=== PATIENT | female | born 1945 | race Hispanic/Latino ===

== ENCOUNTER 2017-08-15 17:43 | Observation (INO) | payer MEDICARE ==
[~2017-08-15] VITALS: Ht 157.5 cm; Wt 41.7 kg
[~2017-08-15 17:43] MED LIST: ALBUTEROL2.5 MG/3 M NEB; AMIODARONE HCL200 MG PO; AMLODIPINE BESYL5 MG PO; ANORO ELLIPTA INH; ASPIRIN CHEW81 MG PO; BLOOD THINNER; CLONAZEPAM0.5 MG PO; DOXYCYCLINE HY100 MG PO; FERROUS SULFAT325 MG PO; GLUCOPHAGE500 MG PO; GUAIFENESIN DM118 ML PO; HUMULIN R100 UNIT/2 SQ; IPRATROPIU0.2 MG/1 M NEB; LASIX20 MG PO; LOPRESSOR25 MG PO; LOVENOX40 MG/0.4 SC; MAGNESIUM OXID400 MG PO; METFORMIN HCL500 MG PO; METFORMIN PO; METOPROLOL TART25 MG PO; MUCINEX DM ER1 EACH PO; MULTI-VITAMIN1 EACH PO; Methylprednisolone Sod Succ IV; ONDANSETRON4 MG/2 M1 IV; PAIN MEDICATION; POTASSIUM CHLO20 ME1 PO; PRAVASTATIN SOD40 MG PO; PREDNISONE20 MG PO; PROTONIX40 MG/ML PO; RESTORIL15 MG PO; SERTRALINE HCL50 MG PO
[2017-08-15] MEDS ORDERED: METHYLPREDNISOLONE SOD SUCC 125 MG/2ML VIAL IV STA (18:22)
[2017-08-15] MEDS ORDERED: ALBUTEROL/IPRATROPIUM 3 ML NEB NEB ONE (18:30)
[2017-08-15] MEDS ORDERED: ASPIRIN 81 MG CHEW TAB PO ONE (18:30)
--- NOTE | 2017-08-15 18:48 | Diagnostic Imaging Report ---
Portable chest x-ray INDICATION: Shortness of breath COMPARISON: Chest x-ray 07/15/2017 FINDINGS: Frontal view of the chest obtained at 1815 hours. HEART AND MEDIASTINUM: Cardiac bypass changes are stable. There is stable aortic ectasia LINES: None. LUNGS: Diffuse stable pulmonary hyperinflation. There is no evidence of mass or infiltrate. Mild stable reticulation in the lung bases is suggestive of early fibrosis. No pneumonia or pulmonary edema. PLEURA: The costophrenic angles are sharp. No pneumothorax. BONES AND SOFT TISSUES: Median sternotomy wires are intact. There are no focal osseous lesions. The soft tissues are normal. IMPRESSION: Stable pulmonary hyperinflation and postoperative changes of the mediastinum. No acute cardiopulmonary process. Signed by: Dr. Chema Kelley MD on 08/15/2017 6:44 PM
[2017-08-15 18:51] LABS: BASOPHILS # (AUTO) 0.1 (0.0-0.1); BASOPHILS % 0.7 % (0.0-1.0); EOSINOPHILS # (AUTO) 0.2 (0.0-0.4); EOSINOPHILS % 2.6 % (0.0-6.0); HEMATOCRIT 37.1 % (34.2-44.1); HEMOGLOBIN 11.3 g/dL (12.0-16.0); LYMPHOCYTES # (AUTO) 1.8 (1.0-3.2); LYMPHOCYTES % 21.8 % (18.0-39.1); MEAN CORPUSCULAR HEMOGLOBIN 25.3 pg (28-32); MEAN CORPUSCULAR HGB CONC 30.5 g/dL (31-35); MONOCYTES # (AUTO) 0.8 (0.2-0.8); MONOCYTES % 10.2 % (4.4-11.3); NEUTROPHILS # (AUTO) 5.2 (2.1-6.9); NEUTROPHILS % 64.2 % (38.7-80.0); PLATELET COUNT 371 x10e3/uL (140-360); RED BLOOD COUNT 4.47 x10e6/uL (3.6-5.1); RED CELL DISTRIBUTION WIDTH 13.7 % (11.7-14.4)
[2017-08-15 19:18] LABS: ALANINE AMINOTRANSFERASE 8 IU/L (0-55); ALBUMIN 3.9 g/dL (3.5-5.0); ALKALINE PHOSPHATASE 87 IU/L (40-150); ANION GAP 13.2 mmol/L (8-16); BLOOD UREA NITROGEN 18 mg/dL (7-26); BUN/CREATININE RATIO 28 (6-25); CALCIUM 9.6 mg/dL (8.4-10.2); CARBON DIOXIDE 32 mmol/L (22-29); CHLORIDE 99 mmol/L (98-107); CREATINE KINASE 36 IU/L (29-168); CREATININE, SERUM 0.64 mg/dL (0.57-1.11); EST GLOMERULAR FILTRATION RATE > 60 ML/MIN (60-); GLUCOSE 102 mg/dL (74-118); POTASSIUM 4.2 mmol/L (3.5-5.1); SODIUM 140 mmol/L (136-145)
[2017-08-15 19:29] LABS: TROPONIN I 0.054 ng/mL (0-0.300)
[2017-08-15] MEDS ORDERED: LORAZEPAM 1 MG TAB PO ONE (19:45)
[2017-08-15] MEDS ORDERED: AZITHROMYCIN 500MG/SOD CHL 0.9% 250ML BAG IV SCH (19:45)
[2017-08-15] MEDS ORDERED: CEFTRIAXONE SOD 1 GM VIAL IV SCH ×2 (19:45→20:00)
[2017-08-15] MEDS ORDERED: SODIUM CHLORIDE FLUSH 10 ML SYR INJ PRN (19:45)
[2017-08-15] MEDS ORDERED: DEXTROSE 50% SYRINGE 50 ML IV PRN (19:45)
[2017-08-15] MEDS ORDERED: LORAZEPAM 1 MG TAB PO PRN (19:45)
[2017-08-15 20:00] VITALS: BP 148/64
[2017-08-15] MEDS ORDERED: AZITHROMYCIN 500MG/NS 250 ML 250 ML IV SCH (20:00)
[2017-08-15] MEDS: INSULIN REGULAR, HUMAN 100 UNIT/1 ML 3ML VIAL SQ SCH (21:00)
[2017-08-15] MEDS: ALBUTEROL/IPRATROPIUM 3 ML NEB NEB SCH (23:00)
[2017-08-16] VITALS: BP 126/60
[2017-08-16] MEDS: METHYLPREDNISOLONE SOD SUCC 40 MG/ML VIAL IV SCH ×2 (00:14→06:20)
[2017-08-16] MEDS: ALBUTEROL/IPRATROPIUM 3 ML NEB NEB SCH ×4 (02:15→15:00)
[2017-08-16 03:18] VITALS: BP 126/60
[2017-08-16 04:00] VITALS: BP 127/62
[2017-08-16 07:20] LABS: BASOPHILS % 0.3 % (0.0-1.0); HEMATOCRIT 33.4 % (34.2-44.1); HEMOGLOBIN 10.1 g/dL (12.0-16.0); LYMPHOCYTES # (AUTO) 0.9 (1.0-3.2); LYMPHOCYTES % 13.1 % (18.0-39.1); MEAN CORPUSCULAR HEMOGLOBIN 24.9 pg (28-32); MEAN CORPUSCULAR HGB CONC 30.2 g/dL (31-35); MEAN CORPUSCULAR VOLUME 82.3 fL (81-99); MONOCYTES % 0.6 % (4.4-11.3); NEUTROPHILS # (AUTO) 5.9 (2.1-6.9); NEUTROPHILS % 85.4 % (38.7-80.0); PLATELET COUNT 335 x10e3/uL (140-360); RED BLOOD COUNT 4.06 x10e6/uL (3.6-5.1); RED CELL DISTRIBUTION WIDTH 13.5 % (11.7-14.4)
[2017-08-16] MEDS: INSULIN REGULAR, HUMAN 100 UNIT/1 ML 3ML VIAL SQ SCH (07:30)
[2017-08-16 07:43] LABS: ANION GAP 15.9 mmol/L (8-16); BLOOD UREA NITROGEN 21 mg/dL (7-26); BUN/CREATININE RATIO 27 (6-25); CALCIUM 9.4 mg/dL (8.4-10.2); CARBON DIOXIDE 29 mmol/L (22-29); CHLORIDE 99 mmol/L (98-107); CREATINE KINASE 23 IU/L (29-168); CREATININE, SERUM 0.77 mg/dL (0.57-1.11); EST GLOMERULAR FILTRATION RATE > 60 ML/MIN (60-); GLUCOSE 317 mg/dL (74-118); POTASSIUM 4.9 mmol/L (3.5-5.1); SODIUM 139 mmol/L (136-145)
[2017-08-16 08:14] VITALS: BP 124/61
[2017-08-16 08:37] LABS: TROPONIN I 0.038 ng/mL (0-0.300)
[2017-08-16] MEDS ORDERED: AMIODARONE HCL 200 MG TAB PO SCH (09:00)
[2017-08-16] MEDS ORDERED: AMLODIPINE BESYLATE 5 MG TAB PO SCH (09:00)
[2017-08-16] MEDS ORDERED: ASPIRIN 81 MG CHEW TAB PO SCH (09:00)
[2017-08-16] MEDS ORDERED: SERTRALINE HCL 50 MG TAB PO SCH (09:00)
[2017-08-16] MEDS ORDERED: CLONAZEPAM 1 MG TAB PO SCH ×2 (09:00→21:00)
[2017-08-16] MEDS: METFORMIN HCL 500 MG TAB PO SCH ×2 (11:29→17:30)
[2017-08-16] MEDS: GUAIFENESIN 600MG/DEXTROMETHORPHAN 30MG TABSR PO SCH ×3 (11:29→17:30)
[2017-08-16] MEDS: MAGNESIUM OXIDE 400 MG TAB PO SCH ×2 (11:29→17:30)
[2017-08-16 12:00] VITALS: BP 159/71
[2017-08-16] MEDS: INSULIN LISPRO 100 UNIT/1 ML 3ML VIAL SQ SCH ×2 (12:30→17:30)
[2017-08-16 15:44] LABS: CREATINE KINASE MB 1.5 ng/mL (0.00-5.00); TROPONIN I 0.013 ng/mL (0-0.300)
[2017-08-16 16:13] VITALS: BP 139/55
[2017-08-16] MEDS ORDERED: METHYLPREDNISOLONE SOD SUCC 40 MG/ML VIAL IV SCH (21:00)
[2017-08-16] MEDS ORDERED: SIMVASTATIN 20 MG TAB PO SCH (21:00)
[2017-08-17] MEDS ORDERED: NON-FORMULARY MEDICATION (Pravastatin Sodium 40 MG) PO SCH (09:00)
--- NOTE | 2017-08-17 15:46 | Consultation ---
DATE OF CONSULTATION: August 16, 2017 PSYCHIATRIC CONSULTATION [employer] remote access had some problem yesterday. Therefore, dictation is delayed. REASON FOR CONSULTATION: To evaluate patient's mood. HISTORY OF PRESENTING ILLNESS: The patient is a 71-year-old female admitted to the hospital for COPD exacerbation. Psychiatric consultation is called to evaluate patient's mood. As per the medical record, patient is possibly going to be admitted to [facility]. Upon evaluation today, patient is found to be lying on her bed. She is alert, awake and oriented to situation. She reports feeling depressed and anxious due to various reasons. She is unable to report her specific mood. Patient denies suicidal or homicidal ideation. She admits to feeling hopeless and helpless. She reports poor sleep and poor appetite. She denies any hallucinations. She is not paranoid or psychotic. She is not agitated. PAST PSYCHIATRIC HISTORY: Patient denies any past psychiatric history although she is taking medication for her mood and anxiety. She denies past suicide attempt. She denies alcohol and drug use. FAMILY HISTORY: Patient states a family history of mental illness. Her mother attempted suicide. SOCIAL HISTORY: Patient states she lives with her daughter and granddaughter. MENTAL STATUS EXAM: The patient is an elderly female. She is thin-looking. She is alert, awake and oriented to situation, anxious. Affect is congruent with mood. Psychomotor state is passive. She denies any suicidal or homicidal ideation. She denies any hallucinations. Thought process is concrete. Insight and judgment are fair. Memory appears to be intact. CURRENT MEDICATION 1. Zoloft 75 mg p.o. daily. 2. Insulin. 3. Metformin. 4. Magnesium oxide. 5. Aspirin. 6. Amlodipine. 7. Amiodarone. 8. Ativan 1 mg p.o. q.6 h. p.r.n. 9. Perphenazine. 10. Albuterol. 11. Klonopin 1 mg p.o. q.12 h. . 12. Methylprednisolone. 13. Pravastatin. 14. Dextrose. 15. Sodium chloride. LAB: WBC is 6.88, RBC is 4.06, hemoglobin 10.1, hematocrit 33.4, platelet is 335. Sodium 139, potassium 4.9, chloride 99, CO2 29, BUN 21, creatinine 0.77. ASSESSMENT: Major depressive disorder, recurrent, moderate; generalized anxiety disorder. PLAN: Continue medication for now as patient was discharged before medication could be adjusted. Will most likely continue to see her at [facility] if consulted. Supportive therapy. Dictated by: TIM Shelton Job#: [id number]
== END 2017-08-16 18:37 ==
LOC: ER 17:43 → ERHOLD 19:44 → MED/SURG 21:10
PROVIDERS: ADMIT Internal Medicine; ATTEND Internal Medicine
DX: J44.1 Chronic obstructive pulmonary disease with (acute) exacerbation (principal); E11.9 Type 2 diabetes mellitus without complications; Z79.4 Long term (current) use of insulin; F33.1 Major depressive disorder, recurrent, moderate; F41.1 Generalized anxiety disorder; Z79.82 Long term (current) use of aspirin; E78.5 Hyperlipidemia, unspecified; I10 Essential (primary) hypertension; Z99.81 Dependence on supplemental oxygen; Z87.891 Personal history of nicotine dependence; Z74.01 Bed confinement status; Z95.1 Presence of aortocoronary bypass graft; Z79.84 Long term (current) use of oral hypoglycemic drugs
CPT/HCPCS: 36415 ×2; 71010; 80048; 80053; 82550 ×2; 82553 ×2; 82948 ×2; 84484 ×2; 85025 ×2; 93005; 99285; G0378 ×2; J0456; J0696; J2920; J2930

== ENCOUNTER → 2017-08-29 | Outpatient (CLI) | payer OTHER ==
[2017-08-30 12:52] LABS: HEMOGLOBIN 10.1 g/dL (12.0-16.0); MEAN CORPUSCULAR HEMOGLOBIN 25.2 pg (28-32); MEAN CORPUSCULAR VOLUME 84.8 fL (81-99); PLATELET COUNT 330 x10e3/uL (140-360); RED BLOOD COUNT 4.01 x10e6/uL (3.6-5.1)
[2017-08-30 12:53] LABS: BASOPHILS # (AUTO) 0.1 (0.0-0.1); BASOPHILS % 0.4 % (0.0-1.0); EOSINOPHILS # (AUTO) 0.4 (0.0-0.4); EOSINOPHILS % 2.9 % (0.0-6.0); LYMPHOCYTES # (AUTO) 2.4 (1.0-3.2); LYMPHOCYTES % 19.5 % (18.0-39.1); MEAN CORPUSCULAR HGB CONC 29.7 g/dL (31-35); MONOCYTES # (AUTO) 1.2 (0.2-0.8); MONOCYTES % 9.7 % (4.4-11.3); NEUTROPHILS # (AUTO) 8.1 (2.1-6.9); NEUTROPHILS % 66.5 % (38.7-80.0); SODIUM 138 mmol/L (136-145)
[2017-08-30 12:54] LABS: ALANINE AMINOTRANSFERASE 13 IU/L (0-55); ALBUMIN 3.5 g/dL (3.5-5.0); ALBUMIN/GLOBULIN RATIO 1.3 (0.8-2.0); ALKALINE PHOSPHATASE 58 IU/L (40-150); ANION GAP 16.7 mmol/L (8-16); BLOOD UREA NITROGEN 33 mg/dL (7-26); BUN/CREATININE RATIO 46 (6-25); CALCIUM 9.1 mg/dL (8.4-10.2); CARBON DIOXIDE 27 mmol/L (22-29); CHLORIDE 99 mmol/L (98-107); CREATININE, SERUM 0.71 mg/dL (0.57-1.11); EST GLOMERULAR FILTRATION RATE > 60 ML/MIN (60-); GLUCOSE 185 mg/dL (74-118); POTASSIUM 4.7 mmol/L (3.5-5.1)
== END ==
LOC: NPA 10:00
DX: R69 Illness, unspecified (principal)
CPT/HCPCS: 36415; 80053; 85025

== ENCOUNTER → 2017-08-30 | Outpatient (CLI) | payer OTHER ==
[2017-08-31 21:59] LABS: ANION GAP 15.4 mmol/L (8-16); BLOOD UREA NITROGEN 27 mg/dL (7-26); BUN/CREATININE RATIO 46 (6-25); CALCIUM 9.4 mg/dL (8.4-10.2); CARBON DIOXIDE 29 mmol/L (22-29); CHLORIDE 99 mmol/L (98-107); CREATININE, SERUM 0.59 mg/dL (0.57-1.11); EST GLOMERULAR FILTRATION RATE > 60 ML/MIN (60-); GLUCOSE 101 mg/dL (74-118); HEMATOCRIT 32.8 % (34.2-44.1); HEMOGLOBIN 9.9 g/dL (12.0-16.0); POTASSIUM 4.4 mmol/L (3.5-5.1); SODIUM 139 mmol/L (136-145)
[2017-08-31 22:00] LABS: EOSINOPHILS % 0.3 % (0.0-6.0); LYMPHOCYTES % 1.9 % (18.0-39.1); MEAN CORPUSCULAR HEMOGLOBIN 25.4 pg (28-32); MEAN CORPUSCULAR HGB CONC 30.2 g/dL (31-35); MEAN CORPUSCULAR VOLUME 84.1 fL (81-99); NEUTROPHILS % 10.2 % (38.7-80.0); PLATELET COUNT 310 x10e3/uL (140-360); RED CELL DISTRIBUTION WIDTH 43.3 % (11.7-14.4)
[2017-09-06 17:32] LABS: BASOPHILS # (AUTO) 0.1 (0.0-0.1); BASOPHILS % 0.9 % (0.0-1.0); EOSINOPHILS # (AUTO) 0.5 (0.0-0.4); EOSINOPHILS % 5.4 % (0.0-6.0); HEMATOCRIT 32.8 % (34.2-44.1); HEMOGLOBIN 9.7 g/dL (12.0-16.0); LYMPHOCYTES # (AUTO) 2.2 (1.0-3.2); LYMPHOCYTES % 23.5 % (18.0-39.1); MEAN CORPUSCULAR HEMOGLOBIN 24.7 pg (28-32); MEAN CORPUSCULAR HGB CONC 29.6 g/dL (31-35); MEAN CORPUSCULAR VOLUME 83.7 fL (81-99); MONOCYTES % 10.4 % (4.4-11.3); NEUTROPHILS # (AUTO) 5.7 (2.1-6.9); NEUTROPHILS % 59.6 % (38.7-80.0); PLATELET COUNT 357 x10e3/uL (140-360); RED BLOOD COUNT 3.92 x10e6/uL (3.6-5.1); RED CELL DISTRIBUTION WIDTH 14.4 % (11.7-14.4)
[2017-09-06 18:10] LABS: CLARITY,URINE CLEAR (CLEAR); COLOR,URINE YELLOW (YELLOW); LEUKOCYTE ESTERASE ,URINE NEGATIVE (NEGATIVE); NITRITE,URINE NEGATIVE (NEGATIVE); PROTEIN,URINE DIPSTICK NEGATIVE (NEGATIVE)
[2017-09-06 18:11] LABS: BILIRUBIN,URINE NEGATIVE (NEGATIVE); EPITHELIAL CELLS,URINE RARE /LPF; KETONES,URINE NEGATIVE (NEGATIVE); URINE UROBILINOGEN 0.2 mg/dL (0.2 - 1); WBC,URINE (MAN) 0-5 /HPF (0-5)
== END ==
LOC: NPA 17:00
PROVIDERS: ATTEND Internal Medicine
DX: R69 Illness, unspecified (principal)
CPT/HCPCS: 36415; 80048; 81001; 85025; 87086

== ENCOUNTER → 2017-09-06 | Outpatient (CLI) | payer OTHER | LOC: NPA 09:00 | PROVIDERS: ATTEND Internal Medicine | DX: Z02.89 Encounter for other administrative examinations (principal) ==

== ENCOUNTER → 2017-09-11 | Outpatient (CLI) | payer OTHER ==
[2017-09-11 12:09] LABS: ALANINE AMINOTRANSFERASE 10 IU/L (0-55); ALBUMIN 3.4 g/dL (3.5-5.0); ALKALINE PHOSPHATASE 53 IU/L (40-150); ANION GAP 14.4 mmol/L (8-16); BLOOD UREA NITROGEN 17 mg/dL (7-26); BUN/CREATININE RATIO 26 (6-25); CALCIUM 9.1 mg/dL (8.4-10.2); CARBON DIOXIDE 31 mmol/L (22-29); CHLORIDE 100 mmol/L (98-107); CREATININE, SERUM 0.66 mg/dL (0.57-1.11); EST GLOMERULAR FILTRATION RATE > 60 ML/MIN (60-); GLUCOSE 132 mg/dL (74-118); POTASSIUM 4.4 mmol/L (3.5-5.1); SODIUM 141 mmol/L (136-145)
[2017-09-11 12:24] LABS: BASOPHILS % 0.2 % (0.0-1.0); EOSINOPHILS # (AUTO) 0.3 (0.0-0.4); EOSINOPHILS % 3.3 % (0.0-6.0); HEMATOCRIT 31.9 % (34.2-44.1); LYMPHOCYTES # (AUTO) 1.4 (1.0-3.2); LYMPHOCYTES % 14.6 % (18.0-39.1); MEAN CORPUSCULAR HGB CONC 29.5 g/dL (31-35); MEAN CORPUSCULAR VOLUME 84.8 fL (81-99); MONOCYTES # (AUTO) 0.8 (0.2-0.8); MONOCYTES % 8.1 % (4.4-11.3); NEUTROPHILS # (AUTO) 6.9 (2.1-6.9); NEUTROPHILS % 73.4 % (38.7-80.0); PLATELET COUNT 304 x10e3/uL (140-360); RED BLOOD COUNT 3.76 x10e6/uL (3.6-5.1)
[2017-09-11 12:29] LABS: HEMOGLOBIN 9.4 g/dL (12.0-16.0)
== END ==
LOC: NPA 11:00
PROVIDERS: ATTEND Internal Medicine
DX: Z02.89 Encounter for other administrative examinations (principal)
CPT/HCPCS: 36415; 80053; 85025

== ENCOUNTER 2017-10-17 20:29 | Emergency (ER) | payer MEDICARE ==
[~2017-10-17] VITALS: Ht 157.5 cm; Wt 41.7 kg
[~2017-10-17 20:29] MED LIST changes: -ASCORBIC ACID500 MG PO; -CLONIDINE HCL 0.1 MG TAB PO ONE; -DIPHENHYDRAMINE HCL 25 MG CAP PO ONE; -MORPHINE SULFATE 2 MG/ML SYR IV NR; -MORPHINE SULFATE 5 MG/ML VIAL IV ONE; -Multivitamins/Minerals PO; -NORVASC10 MG PO; -ONDANSETRON HCL INJ 2 MG/ML VIAL IV STA; -PRAVASTATIN SOD20 MG PO; -PREDNISONE10 MG PO; -SODIUM CHLORIDE 0.9% 1000ML 1,000 ML IV STA; -XOPENEX1.25 MG/3 INH
[2017-10-17] MEDS ORDERED: ONDANSETRON HCL 4 MG ORAL DISINTEGRATING TAB PO ONE (21:15)
[2017-10-17 23:40] VITALS: BP 142/74
== END 2017-10-17 23:41 | disposition home or self-care (01) ==
LOC: ER 20:29
DX: R11.0 Nausea (principal)
CPT/HCPCS: 99284

== ENCOUNTER → 2017-10-17 | Emergency (ER) | payer MEDICARE ==
[~2017-10-17] MED LIST changes: +ASCORBIC ACID500 MG PO; +CLONIDINE HCL 0.1 MG TAB PO ONE; +DIPHENHYDRAMINE HCL 25 MG CAP PO ONE; +MORPHINE SULFATE 2 MG/ML SYR IV NR; +MORPHINE SULFATE 5 MG/ML VIAL IV ONE; +Multivitamins/Minerals PO; +NORVASC10 MG PO; +ONDANSETRON HCL INJ 2 MG/ML VIAL IV STA; +PRAVASTATIN SOD20 MG PO; +PREDNISONE10 MG PO; +SODIUM CHLORIDE 0.9% 1000ML 1,000 ML IV STA; +XOPENEX1.25 MG/3 INH
--- OUTSIDE RECORDS SUMMARY | 2017-10-17 12:47 | XMS REPORT ---
Author Author [facility] Address Unknown Phone Unavailable Care Team Providers [employer] Travel Consultant Name Role Phone ALEKS CUELLAR Unavailable Unavailable ROSEMARY NEWELL Unavailable Unavailable Problems This patient has no known problems. Allergies, Adverse Reactions, Alerts This patient has no known allergies or adverse reactions. Medications This patient has no known medications. Results Test Description Test Time Test Comments Text Results Atomic Results Result Comments CHEST SINGLE (PORTABLE) [place] [address] Patient Name: CONSTANCE NICHOLAS MR #: [id number] : 1945 Age/Sex: 71/F Req #: [id number] Adm Physician: Ordered by: ALEKS CUELLAR MD Report #: [id number] Location: ER Room/Bed: Procedure: [id number] DX/CHEST SINGLE (PORTABLE) Exam Date: 08/15/17 Exam Time: 1815 REPORT STATUS: Signed Portable chest x -ray INDICATION: Shortness of breath COMPARISON: Chest x-ray 2016 FINDINGS: Frontal view of the chest obtained at 1815 hours. HEART AND MEDIASTINUM: Cardiac bypass changes are stable. There is stable aortic ectasia LINES: None. LUNGS: Diffuse stable pulmonary hyperinflation. There is no evidence of mass or infiltrate. Mild stable reticulation in the lung bases is suggestive of early fibrosis. No pneumonia or pulmonary edema. PLEURA: The costophrenic angles are sharp. No pneumothorax. BONES AND SOFT TISSUES: Median sternotomy wires are intact. There are no focal osseous lesions. The soft tissues are normal. IMPRESSION: Stable pulmonary hyperinflation and postoperative changes of the mediastinum. No acute cardiopulmonary process. Signed by: Dr. Francisco J Kelley MD on 08/15/2017 6:44 PM Dictated By: FRANCISCO J KELLEY MD 43 Transcribed By: CHRISTA on 08/15/171843 COPY TO: ALEKS CUELLAR MD ABDOMEN-1VIEW (KUB) [place] [address] Patient Name: CONSTANCE NICHOLAS MR #: [id number] : 1945 Age/Sex: 71/F Req #: [id number] Adm Physician: ROSEMARY NEWELL MD Ordered by: Mira Almeida MATERIAL DISPOSITION INSPECTOR Report #: [id number] Location: MED/SURG Room/Bed: [facility] Procedure: [id number] DX/ABDOMEN-1VIEW (KUB) Exam Date : 08/03/17 Exam Time: 1145 REPORT STATUS: Signed PROCEDURE: X-RAY ABDOMEN - KUB COMPARISON: None. INDICATIONS: ABDOMINAL PAIN FINDINGS: Motion degraded study. Lower pelvis is out of the field of view. BOWEL GAS PATTERN: No abnormally distended loops of large or small bowel. Normal amount of stool in the colon. CALCIFICATIONS: Vascular calcifications. LUNG BASES: Unremarkable. OTHER: Median sternotomy wires. Osseous structures intact. Soft tissues are unremarkable CONCLUSION: Non-obstructive bowel gas pattern. Dictated by: Giancarlo Schroeder M.D. on 2016 at 12:08 Electronically approved by: Giancarlo Schroeder M.D. on 2016 at 12:08 Dictated By: GIANCRALO SCHROEDER MD 07 Transcribed By: DANIELA on 08/03/171207 COPY TO: MIRA ALMEIDA NP CHEST SINGLE (PORTABLE) [place] [address] Patient Name: CONSTANCE NICHOLAS MR #: [id number] : 1945 Age/Sex: 71/F Req #: [id number] Adm Physician: Ordered by: ALEKS CUELLAR MD Report #: [id number] Location: ER Room/Bed: Procedure: [id number] DX/CHEST SINGLE (PORTABLE) Exam Date: Exam Time: REPORT STATUS: Signed PROCEDURE: A single AP view of the chest. COMPARISON: Portable chest 07/15/2017. INDICATIONS: SHORTNESS OF BREATH FINDINGS: Lines/tubes: None. Lungs: The lungs are well inflated and clear. There is no evidence of pneumonia or pulmonary edema. Pleura: There is no pleural effusion or pneumothorax. Heart and mediastinum: The heart and the mediastinum are unremarkable. Atherosclerotic calcifications. Bones: No acute bony abnormality. Median sternotomy wires. Degenerative changes of the thoracic spine. IMPRESSION: No acute radiographic abnormality. Dictated by: Anand Burrows M.D. on 07/30/2017 at 9:45 Electronically approved by: Anand Burrows M.D. on 07/30/2017 at 9:45 Dictated By : ANAND BURROWS MD Transcribed By: DANIELA on 07/30/17944 COPY TO: ALEKS CUELLAR MD CHEST SINGLE (PORTABLE) [place] [address] Patient Name: CONSTANCE NICHOLAS MR #: [id number] : 1945 Age/Sex: 71/F Req #: [id number] Adm Physician: Ordered by: ALEKS CUELLAR MD Report #: [id number] Location: ER Room/Bed: Procedure: [id number] DX/CHEST SINGLE (PORTABLE) Exam Date: 07/15/17 Exam Time: 1610 REPORT STATUS: Signed EXAMINATION: Chest, CHEST SINGLE (PORTABLE) INDICATION: Chest pain COMPARISON : Chest 2 views 12/26/2016 FINDINGS: LINES: None. Heart : Normal cardiac silhouette. Vascular: The pulmonary vasculature is within normal limits. Atherosclerotic calcifications of the aortic arch. Mediastinum: No mediastinal, hilar, or axillary mass or lymphadenopathy. Lungs: No parenchymal mass. No focal consolidation. Pleura: No pleural effusion. No pneumothorax. Bones: No acute osseous abnormality. Degenerative changes of the thoracic spine. Median sternotomy wires. Soft tissues: Normal. Impression: No acute radiographic abnormality. Signed by: Dr. Anand Burrows M.D. on 07/15/2017 4:27 PM Dictated By: ANAND BURROWS MD 26 Transcribed By: CHRISTA on 07/15/171626 COPY TO: ALEKS CUELLAR MD
[2017-10-17 13:59] LABS: BASOPHILS % 0.6 % (0.0-1.0); EOSINOPHILS # (AUTO) 0.2 (0.0-0.4); EOSINOPHILS % 2.4 % (0.0-6.0); HEMATOCRIT 35.8 % (34.2-44.1); HEMOGLOBIN 10.8 g/dL (12.0-16.0); LYMPHOCYTES # (AUTO) 1.1 (1.0-3.2); LYMPHOCYTES % 15.4 % (18.0-39.1); MEAN CORPUSCULAR HEMOGLOBIN 25.2 pg (28-32); MEAN CORPUSCULAR HGB CONC 30.2 g/dL (31-35); MEAN CORPUSCULAR VOLUME 83.4 fL (81-99); MONOCYTES # (AUTO) 0.6 (0.2-0.8); MONOCYTES % 8.7 % (4.4-11.3); NEUTROPHILS # (AUTO) 5.1 (2.1-6.9); NEUTROPHILS % 72.5 % (38.7-80.0); PLATELET COUNT 356 x10e3/uL (140-360); RED BLOOD COUNT 4.29 x10e6/uL (3.6-5.1); RED CELL DISTRIBUTION WIDTH 14.1 % (11.7-14.4)
[2017-10-17 14:24] LABS: ALANINE AMINOTRANSFERASE 9 IU/L (0-55); ALBUMIN/GLOBULIN RATIO 0.9 (0.8-2.0); ALKALINE PHOSPHATASE 65 IU/L (40-150); ANION GAP 13.7 mmol/L (8-16); BLOOD UREA NITROGEN 16 mg/dL (7-26); BUN/CREATININE RATIO 25 (6-25); CALCIUM 9.2 mg/dL (8.4-10.2); CARBON DIOXIDE 35 mmol/L (22-29); CHLORIDE 96 mmol/L (98-107); CREATINE KINASE 47 IU/L (29-168); CREATININE, SERUM 0.65 mg/dL (0.57-1.11); EST GLOMERULAR FILTRATION RATE > 60 ML/MIN (60-); GLUCOSE 134 mg/dL (74-118); LIPASE 13 U/L (8-78); POTASSIUM 4.7 mmol/L (3.5-5.1); SODIUM 140 mmol/L (136-145)
--- NOTE | 2017-10-17 14:25 | Diagnostic Imaging Report ---
PROCEDURE:X-RAY ABDOMEN - KUB COMPARISON:08/03/2017. INDICATIONS:ABDOMEN PAIN, SHORT OF BREATH FINDINGS: The left flank is incompletely imaged. The bowel gas pattern shows no dilated, air-filled loops of bowel. Gas and fecal material are noted throughout the large bowel. No mass effect organomegaly. Atherosclerotic vascular calcifications. Right hemipelvic phlebolith. No additional abnormal calcification. Regional skeletal structures are intact. Mild degenerative facet arthropathy at L5-S1. CONCLUSION: Nonobstructive bowel gas pattern. Dictated by: Santo Beasley M.D. on 10/17/2017 at 14:25 Electronically approved by: Santo Beasley M.D. on 10/17/2017 at 14:25
--- NOTE | 2017-10-17 14:30 | Diagnostic Imaging Report ---
PROCEDURE: A single AP view of the chest. COMPARISON: Chest radiograph 08/15/2017 INDICATIONS: ABDOMEN PAIN, SHORT OF BREATH FINDINGS: Lines/tubes: None. Lungs: The lungs are well inflated. Stable mild chronic interstitial changes. There is no evidence of pneumonia or pulmonary edema. Pleura: There is no pleural effusion or pneumothorax. Heart and mediastinum: Postsurgical changes from prior CABG. Aortic calcifications. The heart and the mediastinum are unremarkable. Bones: No acute bony abnormality. Median sternotomy wires. IMPRESSION: No acute cardiopulmonary disease. Dictated by: Giancarlo Casillas M.D. on 10/17/2017 at 14:30 Electronically approved by: Giancarlo Casillas M.D. on 10/17/2017 at 14:30
[2017-10-17 16:59] LABS: BILIRUBIN,URINE NEGATIVE (NEGATIVE); COLOR,URINE YELLOW (YELLOW); KETONES,URINE NEGATIVE (NEGATIVE); LEUKOCYTE ESTERASE ,URINE NEGATIVE (NEGATIVE); NITRITE,URINE NEGATIVE (NEGATIVE); PROTEIN,URINE DIPSTICK NEGATIVE (NEGATIVE); URINE UROBILINOGEN 0.2 mg/dL (0.2 - 1)
[2017-10-17 17:00] LABS: CLARITY,URINE CLEAR (CLEAR)
[2017-10-17 17:12] LABS: BACTERIA,URINE RARE /HPF; EPITHELIAL CELLS,URINE FEW /LPF; RBC,URINE 0-5 /HPF (0-5); WBC,URINE (MAN) 0-5 /HPF (0-5)
[2017-10-17 17:13] LABS: AMORPHOUS SEDIMENT,URINE MANY (FEW); MUCUS,URINE MODERATE (RARE)
[2017-10-17 18:15] VITALS: BP 115/57
== END | disposition home or self-care (01) ==
LOC: ER 12:44
DX: R10.9 Unspecified abdominal pain (principal)
CPT/HCPCS: 36415; 71045; 74018; 80053; 81001; 82550; 82553; 82948; 83690; 84484; 85025; 87086; 93005; 99284; J2270; J2405; J7030

== ENCOUNTER 2017-11-19 06:37 | Emergency (ER) | payer MEDICARE ==
[~2017-11-19] VITALS: Ht 157.5 cm; Wt 41.7 kg
--- OUTSIDE RECORDS SUMMARY | 2017-11-19 06:39 | XMS REPORT | Continuity of Care Document ---
Author Author [facility] Organization 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 No 08/16/17 2:53am If yes, is advance directive on file with [facility]? No 08/16/17 2:53am If not on file with [facility] will patient provide a copy? Yes 08/16/17 2:53am Do you have a Directive to Physician? No 10/17/17 9:03pm Do you have a Medical Power of Box Person? No 10/17/17 9:03pm Do you have an out of hospital Do Not Resuscitate Order? No 10/17/17 9:03pm Do you have any special needs we should be aware of? No 10/17/17 9:03pm Do you have a support person here with you today? Yes 10/17/17 9:03pm Did patient receive Notice of Privacy Practices? Yes 10/17/17 9:03pm Did patient receive patient rights and responsibilities? Yes 10/17/17 9:03pm Problems Medical Problem Onset Date Status CHF (congestive heart failure) Unknown COPD (chronic obstructive pulmonary disease) Unknown COPD exacerbation Unknown CVA (cerebral vascular accident) Unknown Chronic respiratory acidosis Unknown Dysphagia Unknown Medications Current Home Medications Medication Dose Units Route Directions Days Qty Instructions Start Date Amiodarone Hcl 200 Mg Tablet 200 Mg Oral Daily Amlodipine Besylate 5 Mg Tablet 5 Mg Oral Daily 30 Tab Anoro Ellipta 1 Inh Inhalation Daily 1 08/03/17 Aspirin (Aspirin Chew) 81 Mg Chew 81 Mg Oral Daily 30 Tab Clonazepam 0.5 Mg Tablet 1 Mg Oral Twice A Day Guaifenesin/Dextromethorphan (Mucinex Dm Er 600-30 Mg Tablet) 1 Each Tab.er.12h 1 Each Oral Every 6 Hours 30 Days 07/20/17 Magnesium Oxide 400 Mg Tablet 400 Mg Oral Twice A Day Metformin Hcl 500 Mg Tablet 500 Mg Oral Twice A Day 60 Tab Pravastatin Sodium 40 Mg Tablet 40 Mg Oral Daily Prednisone 20 Mg Tab 50 Mg Oral Daily Sertraline Hcl 50 Mg Tablet 75 Mg Oral Daily 30 Tab Past Home Medications Medication Directions Ordered Status Albuterol Sulfate 2.5 Mg/3 Ml Vial.neb, 3 Ml Nebullizer Rt Q6h 09/18/16 Discontinued Blood Thinner , Discontinued Doxycycline Hyclate 100 Mg Capsule, 100 Mg Oral Daily 07/20/17 Discontinued Enoxaparin Sodium (Lovenox) 40 Mg/0.4 Ml Inj, 40 Mg Subcutaneously Daily At 1700 09/18/16 Discontinued Ferrous Sulfate 325 Mg Tablet, 325 Mg Oral Twice A Day 12/27/16 Discontinued Guaifenesin/Dextromethorphan (Guaifenesin Dm Syrup) 118 Ml Syrup, 10 Ml Oral Every 8 Hours as needed for Cough 09/18/16 Discontinued Insulin Regular, Human (Humulin R) 100 Unit/1 Ml Vial, 0 Unit Sub-Q Before Meals And At Bedtime 09/18/16 Discontinued Ipratropium [place] 0.2 Mg/1 Ml Solution, 2.5 Ml Nebullizer Rt Q6h 09/18/16 Discontinued Metformin 500 Mg, 1000 Mg Oral Twice A Day Discontinued Metformin Hcl (Glucophage) 500 Mg Tablet, 1000 Mg Oral Twice Daily With Meals 09/18/16 Discontinued Methylprednisolone Sod Succ 40 Mg/Ml Inj, 20 Mg Intraven Every 12 Hours 09/18 Discontinued Metoprolol Tartrate (Lopressor) 25 Mg Tab, 12.5 Mg Oral Daily 09/18/16 Discontinued Metoprolol Tartrate 25 Mg Tablet, 12.5 Mg Oral Daily Discontinued Multivitamin (Multi-Vitamin Daily) 1 Each Tablet, 1 Tab Oral Daily 12/27/16 Discontinued Ondansetron Hcl/Pf (Ondansetron Hcl 4 Mg/2 Ml Vial) 4 Mg/2 Ml Vial, 2 Mg Intraven Every 6 Hours as needed for Nausea And Vomiting 09/18/16 Discontinued Pain Medication , Discontinued Pantoprazole Sod (Protonix) 40 Mg/Ml Susp, 40 Mg Oral Before Breakfast Discontinued Temazepam (Restoril) 15 Mg Capsule, 30 Mg Oral Bedtime 09/18/16 Discontinued Social History Social History Problem Response Recorded Date/Time Onset Date Status Hx Psychiatric Problems Yes 08/16/2017 2:53am Not Applicable Not Applicable Hx Eating Disorder No 08/16/2017 2:53am Not Applicable Not Applicable Hx Substance Use Disorder No 08/16/2017 2:53am Not Applicable Not Applicable Hx Depression Y - PT STATES SHE IS DEPRESSED 08/16/2017 2:53am Not Applicable Not Applicable Hx Alcohol Use No 08/16/2017 2:53am Not Applicable Not Applicable Hx Substance Use Treatment No 08/16/2017 2:53am Not Applicable Not Applicable Hx Physical Abuse No 08/16/2017 2:53am Not Applicable Not Applicable Smoking Status Start Date Stop Date Never Smoker Hospital Discharge Instructions No hospital discharge instruction information available. Plan of Care Discharge Date 10/17/17 11:41pm Disposition HOME, SELF-CARE Condition at Discharge Stable Instructions/Education Provided Abdominal Pain - Adult Forms Provided Work/School Excuse Prescriptions See Medication Section Referrals SHARON NUNEZ DO Address: [address] [place] [id number] Additional Instructions/Education FOLLOW UP WITH YOUR PRIMARY CARE DOCTOR ON SUNDAY ADMINISTER MEDICATIONS ORDERED BY DOCTOR RETURN IF SYMPTOMS WORSEN Functional Status No functional status information available. Allergies, Adverse Reactions, Alerts No known allergies. Immunizations No immunization information available. Vital Signs Acute Vital Signs Vital Response Date/Time Temperature (Fahrenheit) 98.4 degrees F (97.6 - 99.5) 10/17/2017 11:40pm Pulse Pulse Rate (adult) 83 bpm (60 - 90) 10/17/2017 11:40pm Respiratory Rate 20 bpm (12 - 24) 10/17/2017 11:40pm Blood Pressure 142/74 mm Hg 10/17/2017 11:40pm Height 5 ft 2 in 10/17/2017 9:10pm Weight 92 lb 10/17/2017 9:10pm Body Mass Index 16.8 kg/m^2 10/17/2017 9:10pm Results Laboratory Results Test Name Result Units Flags Reference Collection Date/Time Result Date/ Time Comments Triglycerides Level 103 MG/DL 0-149 12/26/2016 5:05am 12/26/2016 5: 52am Cholesterol Level 220 MD/DL H 0-199 12/26/2016 5:05am 12/26/2016 5:52am Less than 200 mg/dL Low Risk 201 - 239 mg/dL Borderline Risk 240 mg/dl and greater High Risk LDL Cholesterol 134 MG/DL H 60-130 12/26/2016 5:05am 12/26/2016 5:52am HDL Cholesterol 65 MG/DL H 40-60 12/26/2016 5:05am 12/26/2016 5:52am Cholesterol/HDL Ratio 3.4 3.0-3.6 12/26/2016 5:05am 12/26/2016 5: 52am Free Thyroxine Index 1.4755 1.4-3.8 12/26/2016 5:05am 12/26/2016 6: 03am Thyroxine (T4) 4.83 ug/dL 4.5-10.9 12/26/2016 5:05am 12/26/2016 6:03am Our current method for Total T4 is not recommended for use as the only marker for evaluating patients for thyroid disorders. Triiodothyronine (T3) Uptake 30.55 % 22.50-37.00 12/26/2016 5:05am 6:03am Arterial Blood pH 7.40 7.31-7.41 12/26/2016 2:05am 12/26/2016 2:52am Arterial Blood Partial Pressure CO2 78 mmHg *H 41-51 12/26/2016 2:05am 2:52am Results hand delivered to MD BARRETT at 0212 on 12/26/16 by Sincere Wong. RB OK. Arterial Blood Partial Pressure O2 126 mmHg H 80-105 12/26/2016 2:05am 12/26/2016 2:52am Arterial Blood HCO3 48 mmol/L H 23-28 12/26/2016 2:05am 12/26/2016 2: 52am Arterial Blood Base Excess 23.0 mmol/L H -2 - 3 12/26/2016 2:05am 2016 2:52am Arterial Blood Oxygen Saturation 99.0 % H 95-98 12/26/2016 2:05am 2016 2:52am Reason for ABG: ER STAT SpO2 99% on 3L NC. Iron Level 14 ug/dL L 50-170 07/18/2017 7:08am 07/18/2017 7:45am Total Iron Binding Capacity 393 ug/dL 261-478 07/18/2017 7:08am 2016 7:45am Percent Iron Saturation 4 % L 15-50 07/18/2017 7:08am 07/18/2017 7:45am Transferrin 281 mg/dL 180-382 07/18/2017 7:08am 07/18/2017 7:45am Ferritin 12.75 ng/mL 4.63-204.00 07/18/2017 7:08am 07/18/2017 8:05am Vitamin B12 Level 193 pg/mL L 213-816 07/18/2017 7:08am 07/18/2017 8: 16am Folate 4.3 ng/mL L 7.0-15.4 07/18/2017 7:08am 07/18/2017 8:16am Stool Occult Blood NEGATIVE NEGATIVE 07/19/2017 12:30am 07/19/2017 12 :43am Prothrombin Time 11.2 seconds L 11.9-14.5 07/30/2017 9:11am 07/30/2017 9 :40am Prothromb Time International Ratio 0.78 07/30/2017 9:11am 2016 9:40am Oral Anticoagulant Therapy INR Values: 1. Low Intensity Therapy 1.5 - 2.0 2. Moderate Intensity Therapy 2.0 - 3.0 3. High Intensity Therapy(1) 2.5 - 3.5 4. High Intensity Therapy(2) 3.0 - 4.0 5. Panic Value INR > 5.0 Activated Partial Thromboplast Time 24.7 seconds 23.8-35.5 07/30/2017 9: 11am 07/30/2017 9:40am Hemoglobin A1c Percent 5.8 % 4.0-7.0 08/02/2017 7:10am 08/02/2017 7: 40am Magnesium Level 1.6 MG/DL 1.3-2.1 07/31/2017 6:55am 07/31/2017 8:01am B-Type Natriuretic Peptide 83.1 pg/mL 0-100 08/02/2017 7:10am 2016 7:58am Free Thyroxine 1.22 ng/dL 0.8-1.8 07/31/2017 6:55am 07/31/2017 8:23am Thyroid Stimulating Hormone (TSH) 1.283 uIU/mL 0.350-4.940 07/31/2017 6: 55am 07/31/2017 8:23am White Blood Count 7.09 x10e3/uL 4.8-10.8 10/17/2017 1:45pm 10/17/2017 2 :00pm Red Blood Count 4.29 x10e6/uL 3.6-5.1 10/17/2017 1:45pm 10/17/2017 2: 00pm Hemoglobin 10.8 g/dL L 12.0-16.0 10/17/2017 1:45pm 10/17/2017 2:00pm Hematocrit 35.8 % 34.2-44.1 10/17/2017 1:45pm 10/17/2017 2:00pm Mean Corpuscular Volume 83.4 fL 81-99 10/17/2017 1:45pm 10/17/2017 2: 00pm Mean Corpuscular Hemoglobin 25.2 pg L 28-32 10/17/2017 1:45pm 2017 2:00pm Mean Corpuscular Hemoglobin Concent 30.2 g/dL L 31-35 10/17/2017 1:45pm 10/17/2017 2:00pm Red Cell Distribution Width 14.1 % 11.7-14.4 10/17/2017 1:45pm 2017 2:00pm Platelet Count 356 x10e3/uL 140-360 10/17/2017 1:45pm 10/17/2017 2: 00pm Neutrophils (%) (Auto) 72.5 % 38.7-80.0 10/17/2017 1:45pm 10/17/2017 2: 00pm Lymphocytes (%) (Auto) 15.4 % L 18.0-39.1 10/17/2017 1:45pm 10/17/2017 2 :00pm Monocytes (%) (Auto) 8.7 % 4.4-11.3 10/17/2017 1:45pm 10/17/2017 2: 00pm Eosinophils (%) (Auto) 2.4 % 0.0-6.0 10/17/2017 1:45pm 10/17/2017 2: 00pm Basophils (%) (Auto) 0.6 % 0.0-1.0 10/17/2017 1:45pm 10/17/2017 2:00pm IM GRANULOCYTES % 0.4 % 0.0-1.0 10/17/2017 1:45pm 10/17/2017 2:00pm Neutrophils # (Auto) 5.1 2.1-6.9 10/17/2017 1:45pm 10/17/2017 2:00pm Lymphocytes # (Auto) 1.1 1.0-3.2 10/17/2017 1:45pm 10/17/2017 2:00pm Monocytes # (Auto) 0.6 0.2-0.8 10/17/2017 1:45pm 10/17/2017 2:00pm Eosinophils # (Auto) 0.2 0.0-0.4 10/17/2017 1:45pm 10/17/2017 2:00pm Basophils # (Auto) 0.0 0.0-0.1 10/17/2017 1:45pm 10/17/2017 2:00pm Absolute Immature Granulocyte (auto 0.03 x10e3/uL 0-0.1 10/17/2017 1: 45pm 10/17/2017 2:00pm Urine Color YELLOW YELLOW 10/17/2017 4:40pm 10/17/2017 5:00pm Urine Clarity CLEAR CLEAR 10/17/2017 4:40pm 10/17/2017 5:00pm Urine Specific [place] 1.015 1.010-1.025 10/17/2017 4:40pm 2017 5:00pm Urine pH 8 H 5 - 7 10/17/2017 4:40pm 10/17/2017 5:00pm Urine Leukocyte Esterase NEGATIVE NEGATIVE 10/17/2017 4:40pm 2017 5:00pm Urine Nitrite NEGATIVE NEGATIVE 10/17/2017 4:40pm 10/17/2017 5:00pm Urine Protein NEGATIVE NEGATIVE 10/17/2017 4:40pm 10/17/2017 5:00pm Urine Glucose (UA) NEGATIVE NEGATIVE 10/17/2017 4:40pm 10/17/2017 5: 00pm Urine Ketones NEGATIVE NEGATIVE 10/17/2017 4:40pm 10/17/2017 5:00pm Urine Urobilinogen 0.2 mg/dL 0.2 - 1 10/17/2017 4:40pm 10/17/2017 5: 00pm Urine Bilirubin NEGATIVE NEGATIVE 10/17/2017 4:40pm 10/17/2017 5: 00pm Urine Blood NEGATIVE NEGATIVE 10/17/2017 4:40pm 10/17/2017 5:00pm Urine WBC 0-5 /HPF 0-5 10/17/2017 4:40pm 10/17/2017 5:13pm Urine RBC 0-5 /HPF 0-5 10/17/2017 4:40pm 10/17/2017 5:13pm Urine Bacteria RARE /HPF NONE 10/17/2017 4:40pm 10/17/2017 5:13pm Urine Epithelial Cells FEW /LPF NONE 10/17/2017 4:40pm 10/17/2017 5: 13pm Urine Amorphous Sediment MANY H FEW 10/17/2017 4:40pm 10/17/2017 5: 13pm Urine Mucus MODERATE H RARE 10/17/2017 4:40pm 10/17/2017 5:13pm Sodium Level 140 mmol/L 136-145 10/17/2017 1:45pm 10/17/2017 2:25pm Potassium Level 4.7 mmol/L 3.5-5.1 10/17/2017 1:45pm 10/17/2017 2:25pm Chloride Level 96 mmol/L L 98-107 10/17/2017 1:45pm 10/17/2017 2:25pm Carbon Dioxide Level 35 mmol/L H 22-10/17/2017 1:45pm 10/17/2017 2: 25pm Anion Gap 13.7 mmol/L 8-16 10/17/2017 1:45pm 10/17/2017 2:25pm Blood Urea Nitrogen 16 mg/dL 7-26 10/17/2017 1:45pm 10/17/2017 2:25pm Creatinine 0.65 mg/dL 0.57-1.11 10/17/2017 1:45pm 10/17/2017 2:25pm BUN/Creatinine Ratio 25 6-25 10/17/2017 1:45pm 10/17/2017 2:25pm Estimat Glomerular Filtration Rate > 60 ML/MIN 60- 10/17/2017 1:45pm 2:25pm Ranges were taken from the National Kidney Disease Education Program and the National [employer] literature. Reference ranges: 60 or greater: Normal 16-59 (for 3 consecutive months): Chronic kidney disease 15 or less: Kidney failure Glucose Level 134 mg/dL H 74-118 10/17/2017 1:45pm 10/17/2017 2:25pm Calcium Level 9.2 mg/dL 8.4-10.2 10/17/2017 1:45pm 10/17/2017 2:25pm Bedside Glucose 120 mg/dL 70-120 10/17/2017 4:05pm 10/17/2017 4:16pm Meter ID: [id number] Total Bilirubin 0.6 mg/dL 0.2-1.2 10/17/2017 1:45pm 10/17/2017 2:25pm Aspartate Amino Transf (AST/SGOT) 28 IU/L 5-34 10/17/2017 1:45pm 2017 2:25pm Alanine Aminotransferase (ALT/SGPT) 9 IU/L 0-55 10/17/2017 1:45pm 10/17 2:25pm Total Protein 8.3 g/dL H 6.5-8.1 10/17/2017 1:45pm 10/17/2017 2:25pm Albumin 4.0 g/dL 3.5-5.0 10/17/2017 1:45pm 10/17/2017 2:25pm Globulin 4.3 g/dL H 2.3-3.5 10/17/2017 1:45pm 10/17/2017 2:25pm Albumin/Globulin Ratio 0.9 0.8-2.0 10/17/2017 1:45pm 10/17/2017 2: 25pm Alkaline Phosphatase 65 IU/L 40-150 10/17/2017 1:45pm 10/17/2017 2: 25pm Creatine Kinase 47 IU/L 29-168 10/17/2017 1:45pm 10/17/2017 2:25pm Creatine Kinase MB 1.50 ng/mL 0.00-5.00 10/17/2017 1:45pm 10/17/2017 2: 34pm Troponin I 0.037 ng/mL 0-0.300 10/17/2017 1:45pm 10/17/2017 2:34pm Lipase 13 U/L 8-78 10/17/2017 1:45pm 10/17/2017 2:25pm Microbiology Results Procedure Source Organism/Result Collection Date/Time Result Date/Time Result Status Blood Culture Blood NO GROWTH AFTER 5 DAYS, FINAL REPORT 07/15/2017 4:05pm 07/20/2017 4:31pm Final Procedures Procedure Status Date Provider(s) Computed tomography of brain without radiopaque contrast Active 12/26/16 ANIA BARRETT MD X-ray of chest, two views Active 12/26/16 ANIA BARRETT MD Encounters Encounter Location Arrival/Admit Date Discharge/Depart Date Attending Provider Departed Emergency Room [facility] 10/17/17 8:29pm 11:41pm ANIA BARRETT MD Registered Emergency Room [facility] 10/17/17 12:44pm ALEKS CUELLAR MD Registered Clinic [facility] 09/11/17 11:00am ROSEMARY NEWELL MD Registered Clinic [facility] 09/06/17 9:00am ROSEMARY NEWELL MD Registered Clinic [facility] 08/30/17 5:00pm ROSEMARY NEWELL MD Registered Clinic [facility] 08/29/17 10:00am NONSTAFF Discharged Inpatient (obs) [facility] 08/15/17 7:44pm 6:37pm ROSEMARY NEWELL MD Discharged Inpatient [facility] 07/30/17 10:46am 6:16pm ROSEMARY NEWELL MD Discharged Inpatient [facility] 07/16/17 4:26pm 07/20/17 7:33pm ROSEMARY NEWELL MD Discharged Inpatient [facility] 12/26/16 2:53am 12/27/16 6:20pm ROSEMARY NEWELL MD
--- NOTE | 2017-11-19 08:30 | Diagnostic Imaging Report ---
PROCEDURE:CT PELVIS WITHOUT CONTRAST COMPARISON:None. INDICATIONS:FALL, R/O FRACTURE TECHNIQUE:Multiple axial images of the pelvis were obtained from the pelvic inlet to the proximal femurs. No intravenous or oral contrast was administered. Coronal and sagittal reconstructed images were submitted. FINDINGS: Pelvis: The urinary bladder is normal. Normal uterus and ovaries. Bowel: Moderate amount of retained feces limits intraluminal evaluation of the colon. Scattered diverticuli are present, without adjacent soft tissue inflammatory changes. Postoperative changes of appendectomy. The visualized portions of the small bowel are unremarkable. Vessels: Atherosclerotic calcifications. Limited evaluation. Bones: No acute displaced fracture or dislocation. No expansile or lytic or sclerotic lesion. Degenerative changes of the lumbar spine. CONCLUSION: No acute abnormality of the pelvis. Dictated by: Sincere Alberts M.D. on 11/19/2017 at 8:30 Electronically approved by: Sincere Alberts M.D. on 11/19/2017 at 8:30
--- NOTE | 2017-11-19 08:43 | Diagnostic Imaging Report ---
PROCEDURE: A single AP view of the chest. COMPARISON: Portable chest 10/17/2017. INDICATIONS: FALL, DEMENTIA FINDINGS: Lines/tubes: None. Lungs: The lungs are well inflated and clear. There is no evidence of pneumonia or pulmonary edema. Pleura: There is no pleural effusion or pneumothorax. Skin fold projects over the right lung base. Heart and mediastinum: The heart and the mediastinum are unremarkable. Bones: No acute bony abnormality. Median sternotomy wires degenerative changes of the thoracic spine. IMPRESSION: No acute radiographic abnormality. Dictated by: Sincere Alberts M.D. on 11/19/2017 at 8:43 Electronically approved by: Sincere Alberts M.D. on 11/19/2017 at 8:43
--- NOTE | 2017-11-19 08:56 | Diagnostic Imaging Report ---
Exams: Head, maxillofacial and cervical spine CTs without IV contrast History: Trauma, fall Comparison studies: Head CT 12/26/2016. Technique: Axial images were obtained to the vertex and maxillofacial region. Coronal and sagittal images reconstructed from the axial data. Intravenous contrast: None Findings: Scalp: No abnormalities. Bones: No fractures, blastic or lytic lesions. Brain sulci: Appropriate for age. Ventricles: Normal in size and configuration. No hydrocephalus. Parenchyma: No mass, acute hemorrhage or acute cortical vascular insults. Chronic right [employer]OP[employer] territory vascular insult with encephalomalacia and gliosis throughout the occipital lobe, inferior precuneus gyrus, occipitotemporal/lingual gyri, right hippocampus and splenium of the corpus callosum. Infarct was age-indeterminate (possibly acute to subacute) in 12/26/2016. There are chronic lacunar infarcts in the right thalamus, posterior right putamen and genu of the corpus callosum to the left of midline. Scattered ill-defined hypodensities in the supratentorial white matter are nonspecific but most compatible with chronic small vessel ischemic changes. Sellar/suprasellar region: No abnormalities Craniocervical junction: Patent foramen magnum. No Chiari one malformation. Atherosclerotic calcifications in the carotid siphons and left intradural vertebral artery. Maxillofacial CT: Soft tissues: Supranasal and perineural soft tissue hematomas. Bones: Nondisplaced nasal bone fractures of the nasal tip with probable minimally displaced fracture of the superior nasal septum. No additional fractures. Orbits: Globes: Intact Extra or intraconal abnormalities: None. Paranasal sinuses: Left sphenoid sinus is nearly completely opacified with mucosal thickening and secretions, increased from previous exam. The posterior left ethmoid air cells are also similarly opacified. Small nonobstructing retention cyst with mild mucosal thickening in the right sphenoid sinus and minimal mucosal thickening along the right maxillary sinus alveolar recess. Remaining sinuses are clear. Incidental findings: New nonspecific bilateral middle ear opacification with increase in degree of mastoid opacification (mastoids now completely opacified. Cervical spine CT: Fractures: None. Soft tissue injuries: No gross acute abnormalities. Atlantoaxial articulation: Intact. The patient's head is rotated to the right at the time the exam. Alignment: Straightened curvature may be positional. Minimal anterolisthesis of C2 on C3 and retrolisthesis of C5 on C6 are most likely degenerative in etiology. Otherwise, no acute subluxations. Cervicomedullary junction: No abnormalities. The foramen magnum is patent. Soft tissues: No abnormalities. Vertebrae: No fractures, infection or neoplasm. Degenerative changes: Mildly degenerated disks from C2 through C7. Disc osteophyte complexes from C3 C7 indent the thecal sac but results in only mild canal stenosis. Moderate multilevel facet arthrosis. Mild bilateral foraminal stenosis at C3-C4 moderate foraminal stenosis bilaterally at C4-C5 and at C5-C6 due to uncovertebral and facet arthrosis. Incidental findings: Scattered calcified atherosclerosis (subclavian arteries, left common carotid artery, left cervical bulb, carotid siphons and left intradural vertebral artery). Mild centrilobular emphysema at the included lung apices. IMPRESSION: Head CT: 1. No acute abnormalities. 2. Chronic right [employer]ELOP[employer]ER vascular territory insult. 3. Unchanged mild to moderate chronic microvascular ischemic changes with chronic lacunar infarcts as described. 4. Nonspecific bilateral middle ear mastoid opacification, increased from previous exam. Maxillofacial CT: 1. Prenasal and periorbital soft tissue hematomas with nondisplaced right nasal bone fracture and likely minimally displaced fracture of the superior nasal septum. 2. No additional acute post-traumatic abnormalities. 3. Paranasal sinus inflammatory changes. Cervical spine CT: 1. No cervical spine fracture or acute subluxation. 2. Multilevel degenerative changes as described. 3. Cannot adequately evaluate ligament, spinal cord and or vascular abnormalities on the basis of this exam. Signed by: Dr. Santo Downey M.D. on 11/19/2017 8:52 AM
[2017-11-19] MEDS ORDERED: HALOPERIDOL LACTATE 5 MG/ML VIAL IM ONE ×2 (10:45)
[2017-11-19] MEDS ORDERED: SODIUM CHLORIDE 0.9% 1000ML 1,000 ML IV STA (11:12)
[2017-11-19 11:30] LABS: BASOPHILS # (AUTO) 0.1 (0.0-0.1); BASOPHILS % 0.6 % (0.0-1.0); EOSINOPHILS # (AUTO) 0.1 (0.0-0.4); EOSINOPHILS % 1.5 % (0.0-6.0); HEMOGLOBIN 10.2 g/dL (12.0-16.0); LYMPHOCYTES % 22.6 % (18.0-39.1); MEAN CORPUSCULAR HEMOGLOBIN 24.6 pg (28-32); MEAN CORPUSCULAR HGB CONC 29.1 g/dL (31-35); MEAN CORPUSCULAR VOLUME 84.3 fL (81-99); MONOCYTES % 11.7 % (4.4-11.3); NEUTROPHILS # (AUTO) 5.5 (2.1-6.9); NEUTROPHILS % 63.1 % (38.7-80.0); PLATELET COUNT 314 x10e3/uL (140-360); RED BLOOD COUNT 4.15 x10e6/uL (3.6-5.1); RED CELL DISTRIBUTION WIDTH 14.6 % (11.7-14.4)
[2017-11-19 11:47] LABS: ALANINE AMINOTRANSFERASE 13 IU/L (0-55); ALBUMIN 3.5 g/dL (3.5-5.0); ALBUMIN/GLOBULIN RATIO 0.9 (0.8-2.0); ALKALINE PHOSPHATASE 62 IU/L (40-150); ANION GAP 15.4 mmol/L (8-16); BLOOD UREA NITROGEN 19 mg/dL (7-26); BUN/CREATININE RATIO 28 (6-25); CALCIUM 9.7 mg/dL (8.4-10.2); CARBON DIOXIDE 39 mmol/L (22-29); CHLORIDE 90 mmol/L (98-107); CREATINE KINASE 189 IU/L (29-168); CREATININE, SERUM 0.68 mg/dL (0.57-1.11); EST GLOMERULAR FILTRATION RATE > 60 ML/MIN (60-); GLUCOSE 107 mg/dL (74-118); POTASSIUM 4.4 mmol/L (3.5-5.1); SODIUM 140 mmol/L (136-145)
[2017-11-19 11:58] LABS: BILIRUBIN,URINE NEGATIVE (NEGATIVE); CLARITY,URINE HAZY (CLEAR); COLOR,URINE YELLOW (YELLOW); KETONES,URINE NEGATIVE (NEGATIVE); LEUKOCYTE ESTERASE ,URINE 1+ (NEGATIVE); NITRITE,URINE NEGATIVE (NEGATIVE); URINE UROBILINOGEN 0.2 mg/dL (0.2 - 1)
[2017-11-19 11:59] LABS: PROTEIN,URINE DIPSTICK TRACE (NEGATIVE)
[2017-11-19 12:06] LABS: THYROID STIMULATING HORMONE 12.296 uIU/mL (0.350-4.940)
[2017-11-19 12:16] LABS: BACTERIA,URINE MANY /HPF; EPITHELIAL CELLS,URINE RARE /LPF
[2017-11-19 12:17] LABS: MUCUS,URINE FEW (RARE)
[2017-11-19] MEDS ORDERED: ONDANSETRON HCL INJ 2 MG/ML VIAL IV STA (12:46)
[2017-11-19] MEDS ORDERED: MORPHINE SULFATE 2 MG/ML SYR IV STA ×3 (12:46→14:39)
[2017-11-19] MEDS ORDERED: NITROGLYCERIN 2% OINT 1 GM PKT TOP ONE (13:00)
[2017-11-19] MEDS ORDERED: NITROGLYCERIN/D5W 200 MCG/ML 250 ML ONE (13:02)
[2017-11-19] MEDS ORDERED: SODIUM CHLORIDE 0.9% 1000ML 1,000 ML ONE (13:02)
[2017-11-19] MEDS ORDERED: CEFTRIAXONE SOD 1 GM VIAL IV ONE (14:00)
== END 2017-11-19 15:38 | disposition home or self-care (01) ==
LOC: ER 06:37
DX: R10.30 Lower abdominal pain, unspecified (principal); I10 Essential (primary) hypertension; E11.9 Type 2 diabetes mellitus without complications; J44.9 Chronic obstructive pulmonary disease, unspecified; F41.9 Anxiety disorder, unspecified; Z95.1 Presence of aortocoronary bypass graft; Z87.19 Personal history of other diseases of the digestive system
CPT/HCPCS: 36415; 51700; 70450; 70486; 71045; 72125; 72192; 80053; 81001; 82140; 82550; 82553; 84443; 84484; 85025; 93005; 99285; J0696; J1630; J2270; J2405; J7030

== ENCOUNTER 2017-11-25 07:01 | Inpatient (IN) | payer MEDICARE ==
[~2017-11-25] VITALS: Ht 157.5 cm; Wt 45.5 kg
--- OUTSIDE RECORDS SUMMARY | 2017-11-25 07:04 | XMS REPORT | Continuity of Care Document ---
Author Author [facility] Organization [facility] Address [address] [place] [address] Phone Unavailable Care Team Providers Care Documentation Analyst Name Role Phone SHARON NUNEZ DO PCP Insurance Providers Guarantor Nadine Montes Address [id number] [place] [address] Email NONE Payer Medicare A & B Policy Number [id number] Subscriber's Name Montes,Nadine Soria Relationship 18 Self / Same As Patient Effective Date 08 Advance Directives Directive Response Recorded Date/Time Does the patient have an advance directive? No 08/16/17 2:53am If yes, is advance directive on file with [facility]? No 08/16/17 2:53am If not on file with [facility] will patient provide a copy? No 11/19/17 6:35am Do you have a Directive to Physician? No 11/19/17 6:35am Do you have a Medical Power of Erp Implementation Consultant? No 11/19/17 6:35am Do you have an out of hospital Do Not Resuscitate Order? No 11/19/17 6:35am Do you have any special needs we should be aware of? No 11/19/17 6:35am Do you have a support person here with you today? No 11/19/17 6:35am Did patient receive Notice of Privacy Practices? Yes 11/19/17 6:35am Did patient receive patient rights and responsibilities? Yes 11/19/17 6:35am Problems Medical Problem Onset Date Status CHF [...] Meals And At Bedtime 09/18/16 Discontinued Ipratropium [place] 0.2 Mg/1 Ml Solution, 2.5 Ml Nebullizer [...] No 08/16/2017 2:53am Not Applicable Not Applicable Hospital Discharge Instructions No hospital discharge instruction information available. Plan of Care Discharge Date 11/19/17 3:38pm Disposition [facility] Condition at Discharge Stable Forms Provided Work/School Excuse Prescriptions See Medication Section Functional Status No functional status information available. [...] 10/17/2017 11:40pm Height 5 ft 2 in 11/19/2017 6:43am Weight 92 lb 11/19/2017 6:43am Body Mass Index 16.8 kg/m^2 11/19/2017 6:43am Results Laboratory Results Test Name Result Units Flags Reference Collection Date/Time Result Date/ Time Comments Iron Level 14 ug/dL L 50-170 07/18/2017 [...] 1.22 ng/dL 0.8-1.8 07/31/2017 6:55am 07/31/2017 8:23am Urine Amorphous Sediment MANY H FEW 10/17/2017 4:40pm 10/17/2017 5: 13pm Bedside Glucose 120 mg/dL 70-120 10/17/2017 4:05pm 10/17/2017 4:16pm Meter ID: [id number] Lipase 13 U/L 8-78 10/17/2017 1:45pm 10/17/2017 2:25pm White Blood Count 8.69 x10e3/uL 4.8-10.8 11/19/2017 11:23am 11/19/2017 11:30am Red Blood Count 4.15 x10e6/uL 3.6-5.1 11/19/2017 11:2311/19/2017 11: 30am Hemoglobin 10.2 g/dL L 12.0-16.0 11/19/2017 11:11/19/2017 11:30am Hematocrit 35.0 % 34.2-44.1 11/19/2017 11:11/19/2017 11:30am Mean Corpuscular Volume 84.3 fL 81-99 11/19/2017 11:11/19/2017 11: 30am Mean Corpuscular Hemoglobin 24.6 pg L 28-32 11/19/2017 11:232017 11:30am Mean Corpuscular Hemoglobin Concent 29.1 g/dL L 31-35 11/19/2017 11:2311/19/2017 11:30am Red Cell Distribution Width 14.6 % H 11.7-14.4 11/19/2017 11:232017 11:30am Platelet Count 314 x10e3/uL 140-360 11/19/2017 11:2311/19/2017 11: 30am Neutrophils (%) (Auto) 63.1 % 38.7-80.0 11/19/2017 11:11/19/2017 11:30am Lymphocytes (%) (Auto) 22.6 % 18.0-39.1 11/19/2017 11:11/19/2017 11:30am Monocytes (%) (Auto) 11.7 % H 4.4-11.3 11/19/2017 11:am 11/19/2017 11 :30am Eosinophils (%) (Auto) 1.5 % 0.0-6.0 11/19/2017 11:11/19/2017 11: 30am Basophils (%) (Auto) 0.6 % 0.0-1.0 11/19/2017 11:11/19/2017 11: 30am IM GRANULOCYTES % 0.5 % 0.0-1.0 11/19/2017 11:11/19/2017 11:30am Neutrophils # (Auto) 5.5 2.1-6.9 11/19/2017 11:11/19/2017 11: 30am Lymphocytes # (Auto) 2.0 1.0-3.2 11/19/2017 11:23am 11/19/2017 11: 30am Monocytes # (Auto) 1.0 H 0.2-0.8 11/19/2017 11:11/19/2017 11: 30am Eosinophils # (Auto) 0.1 0.0-0.4 11/19/2017 11:11/19/2017 11: 30am Basophils # (Auto) 0.1 0.0-0.1 11/19/2017 11:11/19/2017 11:30am Absolute Immature Granulocyte (auto 0.04 x10e3/uL 0-0.1 11/19/2017 11: 11/19/2017 11:30am Urine Color YELLOW YELLOW 11/19/2017 11:4211/19/2017 12:00pm Urine Clarity HAZY CLEAR 11/19/2017 11:4211/19/2017 12:00pm Urine Specific [place] 1.005 L 1.010-1.025 11/19/2017 11:42am 2017 12:00pm Urine pH 7 5 - 7 11/19/2017 11:4211/19/2017 12:00pm Urine Leukocyte Esterase 1+ H NEGATIVE 11/19/2017 11:42am 11/19/2017 12:00pm Urine Nitrite NEGATIVE NEGATIVE 11/19/2017 11:42am 11/19/2017 12: 00pm Urine Protein TRACE H NEGATIVE 11/19/2017 11:42am 11/19/2017 12:00pm Urine Glucose (UA) NEGATIVE NEGATIVE 11/19/2017 11:42am 11/19/2017 12 :00pm Urine Ketones NEGATIVE NEGATIVE 11/19/2017 11:42am 11/19/2017 12: 00pm Urine Urobilinogen 0.2 mg/dL 0.2 - 1 11/19/2017 11:42am 11/19/2017 12: 00pm Urine Bilirubin NEGATIVE NEGATIVE 11/19/2017 11:42am 11/19/2017 12: 00pm Urine Blood NEGATIVE NEGATIVE 11/19/2017 11:42am 11/19/2017 12:00pm Urine WBC 6-10 /HPF H 0-5 11/19/2017 11:42am 11/19/2017 12:17pm Urine RBC NONE /HPF 0-5 11/19/2017 11:42am 11/19/2017 12:17pm Urine Bacteria MANY /HPF H NONE 11/19/2017 11:42am 11/19/2017 12:17pm Urine Epithelial Cells RARE /LPF NONE 11/19/2017 11:42am 11/19/2017 12: 17pm Urine Mucus FEW H RARE 11/19/2017 11:42am 11/19/2017 12:17pm Sodium Level 140 mmol/L 136-145 11/19/2017 11:23am 11/19/2017 11:48am Potassium Level 4.4 mmol/L 3.5-5.1 11/19/2017 11:23am 11/19/2017 11: 48am Chloride Level 90 mmol/L L 98-107 11/19/2017 11:23am 11/19/2017 11:48am Carbon Dioxide Level 39 mmol/L H 22-11/19/2017 11:23am 11/19/2017 11: 48am Anion Gap 15.4 mmol/L 8-16 11/19/2017 11:23am 11/19/2017 11:48am Blood Urea Nitrogen 19 mg/dL 7-11/19/2017 11:23am 11/19/2017 11: 48am Creatinine 0.68 mg/dL 0.57-1.11 11/19/2017 11:11/19/2017 11:48am BUN/Creatinine Ratio 28 H 6-25 11/19/2017 11:11/19/2017 11:48am Estimat Glomerular Filtration Rate > 60 ML/MIN 60- 11/19/2017 11:11/19/2017 11:48am Ranges were taken from the National Kidney Disease Education Program and the National Kidney Foundation literature. Reference ranges: 60 or greater: Normal 16-59 (for 3 consecutive months): Chronic kidney disease 15 or less: Kidney failure Glucose Level 107 mg/dL 74-118 11/19/2017 11:11/19/2017 11:48am Calcium Level 9.7 mg/dL 8.4-10.2 11/19/2017 11:11/19/2017 11:48am Total Bilirubin 0.3 mg/dL 0.2-1.2 11/19/2017 11:11/19/2017 11: 48am Aspartate Amino Transf (AST/SGOT) 32 IU/L 5-34 11/19/2017 11:11/19 11:48am Alanine Aminotransferase (ALT/SGPT) 13 IU/L 0-55 11/19/2017 11: 11:48am Ammonia 37 UG/DL 31-123 11/19/2017 12:35pm 11/19/2017 12:45pm Total Protein 7.5 g/dL 6.5-8.1 11/19/2017 11:11/19/2017 11:48am Albumin 3.5 g/dL 3.5-5.0 11/19/2017 11:11/19/2017 11:48am Globulin 4.0 g/dL H 2.3-3.5 11/19/2017 11:11/19/2017 11:48am Albumin/Globulin Ratio 0.9 0.8-2.0 11/19/2017 11:11/19/2017 11: 48am Alkaline Phosphatase 62 IU/L 40-150 11/19/2017 11:11/19/2017 11: 48am Creatine Kinase 189 IU/L H 29-168 11/19/2017 11:11/19/2017 11:48am Creatine Kinase MB 9.30 ng/mL H 0-5.0 11/19/2017 11:23am 11/19/2017 12: 15pm Troponin I 4.726 ng/mL H 0-0.300 11/19/2017 11:23am 11/19/2017 12:15pm Elevated result called to TERESA KUMARI RN at 1212 on 11/19/17 by Herve Fowler. Thyroid Stimulating Hormone (TSH) 12.296 uIU/mL H 0.350-4.940 11/19/2017 11:23am 11/19/2017 12:15pm Microbiology Results Procedure Source Organism/Result Collection Date/Time Result Date/Time Result Status Blood Culture Blood NO GROWTH AFTER 5 DAYS, FINAL REPORT 07/15/2017 4:05pm 07/20/2017 4:31pm Final Procedures Procedure Status Date Provider(s) Computed tomography of brain without radiopaque contrast Active 11/19/17 ADDISON KIM MD Computed tomography of cervical spine without contrast Active 11/19/17 ADDISON KIM MD Computed tomography of pelvis without contrast Active 11/19/[address] maxillofacial area wo contrast Active 11/19/17 ADDISON KIM MD Encounters Encounter Location Arrival/Admit Date Discharge/Depart Date Attending Provider Departed Emergency Room [facility] 11/19/17 6:37am 3:38pm BRENNAN BARRON MD Registered Referred [facility] 11/12/17 4:03pm ROSEMARY NEWELL MD Departed Emergency Room [facility] 10/17/17 8:29pm 11:41pm ANIA BARRETT MD Registered Emergency Room [facility] 10/17/17 12:44pm ALEKS CUELLAR MD Registered Referred [facility] 09/11/17 4:07pm ROSEMARY NEWELL MD Registered Referred [facility] 09/06/17 4:05pm ROSEMARY NEWELL MD Registered Referred [facility] 08/29/17 3:54pm NONSTAFF Discharged Inpatient (obs) [facility] 08/15/17 7:44pm 6:37pm ROSEMARY NEWELL MD Discharged Inpatient [facility] 07/30/17 10:46am 6:16pm ROSEMARY NEWELL MD Discharged Inpatient [facility] 07/16/17 4:26pm 07/20/17 7:33pm ROSEMARY NEWELL MD
[2017-11-25] MEDS ORDERED: METOPROLOL TARTRATE 50 MG TAB PO STA (07:25)
[2017-11-25] MEDS ORDERED: MORPHINE SULFATE 2 MG/ML SYR IV STA (07:25)
[2017-11-25] MEDS ORDERED: ENOXAPARIN SODIUM INJ 100 MG/ML SYR SC STA (07:25)
[2017-11-25] MEDS ORDERED: ONDANSETRON HCL INJ 2 MG/ML VIAL IV STA (07:25)
[2017-11-25] MEDS ORDERED: SODIUM CHLORIDE 0.9% 1000ML 1,000 ML IV STA (07:25)
[2017-11-25] MEDS ORDERED: PANTOPRAZOLE 40 MG 10ML VIAL IV STA (07:25)
[2017-11-25] MEDS ORDERED: DEXTROSE 50% SYRINGE 50 ML IV PRN ×2 (07:30→08:45)
[2017-11-25] MEDS ORDERED: ONDANSETRON HCL INJ 2 MG/ML VIAL IV PRN (07:30)
[2017-11-25] MEDS: METOPROLOL TARTRATE 25 MG TAB PO SCH ×2 (07:30→21:28)
[2017-11-25] MEDS ORDERED: MORPHINE SULFATE 2 MG/ML SYR IV PRN (08:00)
[2017-11-25] MEDS: PREDNISONE 10 MG TAB PO SCH (08:04)
--- NOTE | 2017-11-25 08:22 | Diagnostic Imaging Report ---
EXAM: XR CHEST 1 VIEW DATE: 11/25/2017 7:25 AM INDICATION: Chest pain COMPARISON: 11/19/2017 FINDINGS: Lines and Tubes: None Heart and Mediastinum: Heart upper limits of normal. Aortic vascular calcifications, tortuosity descending thoracic aorta, and sternotomy wires, stable. Lungs and Pleura: No pneumothorax or focal consolidation. Minimal opacities lung bases suggest atelectasis, stable. Bones and Soft Tissues: No acute findings. IMPRESSION: 1. No acute cardiopulmonary findings. Signed by: Dr. Mg Salter MD on 11/25/2017 8:18 AM
[2017-11-25] MEDS: AZITHROMYCIN 500MG/NS 250 ML 250 ML IV SCH (08:30)
[2017-11-25 08:31] LABS: PROTHROMBIN TIME 12.4 seconds (11.9-14.5)
[2017-11-25 08:32] LABS: PARTIAL THROMBOPLASTIN TIME 27.3 seconds (23.8-35.5)
[2017-11-25 08:33] LABS: BASOPHILS % 0.3 % (0.0-1.0); EOSINOPHILS # (AUTO) 0.3 (0.0-0.4); EOSINOPHILS % 5.9 % (0.0-6.0); HEMATOCRIT 30.9 % (34.2-44.1); HEMOGLOBIN 8.7 g/dL (12.0-16.0); LYMPHOCYTES # (AUTO) 1.2 (1.0-3.2); LYMPHOCYTES % 20.9 % (18.0-39.1); MEAN CORPUSCULAR HEMOGLOBIN 24.2 pg (28-32); MEAN CORPUSCULAR HGB CONC 28.2 g/dL (31-35); MEAN CORPUSCULAR VOLUME 86.1 fL (81-99); MONOCYTES # (AUTO) 0.8 (0.2-0.8); NEUTROPHILS # (AUTO) 3.4 (2.1-6.9); NEUTROPHILS % 58.7 % (38.7-80.0); PLATELET COUNT 388 x10e3/uL (140-360); RED BLOOD COUNT 3.59 x10e6/uL (3.6-5.1); RED CELL DISTRIBUTION WIDTH 14.6 % (11.7-14.4)
[2017-11-25 08:40] LABS: BILIRUBIN,URINE NEGATIVE (NEGATIVE); CLARITY,URINE HAZY (CLEAR); COLOR,URINE YELLOW (YELLOW); KETONES,URINE NEGATIVE (NEGATIVE); LEUKOCYTE ESTERASE ,URINE NEGATIVE (NEGATIVE); NITRITE,URINE NEGATIVE (NEGATIVE); PROTEIN,URINE DIPSTICK NEGATIVE (NEGATIVE); URINE UROBILINOGEN 0.2 mg/dL (0.2 - 1)
[2017-11-25 08:42] LABS: ALANINE AMINOTRANSFERASE 8 IU/L (0-55); ALBUMIN 3.1 g/dL (3.5-5.0); ALBUMIN/GLOBULIN RATIO 0.9 (0.8-2.0); ALKALINE PHOSPHATASE 56 IU/L (40-150); BLOOD UREA NITROGEN 15 mg/dL (7-26); BUN/CREATININE RATIO 28 (6-25); CARBON DIOXIDE 39 mmol/L (22-29); CHLORIDE 96 mmol/L (98-107); CREATINE KINASE 35 IU/L (29-168); CREATININE, SERUM 0.54 mg/dL (0.57-1.11); EST GLOMERULAR FILTRATION RATE > 60 ML/MIN (60-); GLUCOSE 125 mg/dL (74-118); LIPASE 13 U/L (8-78); MAGNESIUM 1.2 MG/DL (1.3-2.1); SODIUM 141 mmol/L (136-145)
[2017-11-25] MEDS: ASPIRIN 81 MG ENTERIC COATED PO SCH (08:44)
[2017-11-25 08:59] LABS: AMORPHOUS SEDIMENT,URINE MANY (FEW); EPITHELIAL CELLS,URINE FEW /LPF; RBC,URINE 0-5 /HPF (0-5); WBC,URINE (MAN) 0-5 /HPF (0-5)
[2017-11-25] MEDS: METFORMIN HCL 500 MG TAB PO SCH ×2 (09:00→17:22)
[2017-11-25] MEDS: MAGNESIUM OXIDE 400 MG TAB PO SCH ×2 (09:00→17:22)
[2017-11-25] MEDS ORDERED: AMLODIPINE BESYLATE 5 MG TAB PO SCH (09:00)
[2017-11-25] MEDS: ENOXAPARIN SOD INJ 40 MG/0.4 ML SYR SC SCH ×2 (09:00→21:28)
[2017-11-25] MEDS: AMIODARONE HCL 200 MG TAB PO SCH (09:00)
[2017-11-25] MEDS: CLONAZEPAM 1 MG TAB PO SCH ×2 (09:00→17:22)
[2017-11-25] MEDS: PANTOPRAZOLE 40 MG 10ML VIAL IV SCH (09:00)
[2017-11-25 09:02] LABS: THYROID STIMULATING HORMONE 3.043 uIU/mL (0.350-4.940)
[2017-11-25] MEDS: INSULIN REGULAR, HUMAN 100 UNIT/1 ML 3ML VIAL SQ SCH ×3 (09:11→21:28)
--- NOTE | 2017-11-25 09:29 | Diagnostic Imaging Report ---
Examination: CT head without contrast Clinical Indication: Fall. Confusion. Altered mental status. Technique: Transaxial noncontrast images from the skull base through the vertex were obtained. Sagittal and coronal reformatted images were done. Comparison: Head CT performed November 19, 2017. Findings: There is significant motion artifact on the scan. Scalp: No abnormalities. Bones: Intact. No fractures. No blastic or lytic lesions. Brain sulci: Appropriate for patient's age. Ventricles: Normal in size and configuration. No hydrocephalus. Extra-axial space: No large hemorrhage.. Parenchyma: No large masses, large hemorrhage, or large acute cortical based vascular insults. Again demonstrated is a cortical-based area of encephalomalacia involving the right posterior cerebral artery territory (occipital lobe, precuneus gyrus of the right parietal lobe, right hippocampus and splenium of the corpus callosum) with associated dystrophic calcification. Again demonstrated are chronic lacunar infarcts in the right putamen, right thalamocapsular region and anterior limb of the left internal capsule. Again demonstrated are mild confluent areas of hypoattenuation in the periventricular and subcortical white matter, nonspecific. Suprasellar region: No abnormalities. Craniocervical junction: The foramen magnum is patent. No Chiari one malformation. Incidental findings: Opacification of the bilateral mastoid air cells and middle ear cavities, unchanged. Impression: 1. Despite limitation, no new large intraparenchymal or extra-axial hemorrhage or large acute territorial infarct. No change from prior head CT performed November 19, 2017. 2. Unchanged chronic right posterior cerebral artery territory and chronic lacunar infarcts, as above. 3. Unchanged mild chronic microvascular ischemic change. 4. Unchanged bilateral presumed otomastoiditis. Signed by: Dr. Jen Clement M.D. on 11/25/2017 9:25 AM
--- NOTE | 2017-11-25 09:35 | Diagnostic Imaging Report ---
Examination: CT CERVICAL SPINE WITHOUT CONTRAST HISTORY:Fall. Evaluate for fracture. COMPARISON:CT cervical spine performed November 19, 2017. TECHNIQUE: Multidetector helical axial images were obtained without contrast from the foramen magnum to T1. Coronal and sagittal reformatted images were done. Bone and soft tissue windows were evaluated. FINDINGS: Alignment:Normal lordosis. Mild degenerative anterolisthesis of C2 on C3 and retrolisthesis of C5 on C6. Vertebrae: Evaluation of the C7 vertebral body is limited due to partial visualization. Normal height and density. No acute fracture, infection or neoplasm. Disc space heights: Normal height. Caliber of spinal canal: Developmentally normal. Posterior fossa and craniocervical junction: Foramen magnum patent. No Chiari 1 malformation. Soft tissues: No abnormality. Degenerative changes: Unchanged degenerative disc osteophyte complexes from C3-C4 through C6-C7 without canal stenosis. Unchanged mild bilateral neural foraminal narrowing at C3-C4 due to bilateral facet arthropathy. Unchanged mild right and moderate left neural foraminal narrowing at C4-C5 due to bilateral uncovertebral and facet arthropathy. Unchanged moderate bilateral neural foraminal narrowing at C5-C6 due to bilateral uncovertebral and facet arthropathy. IMPRESSION: 1. No acute fracture of the C1-C6 vertebrae and superior aspect of the C7 vertebral body. The C7 vertebral body is not entirely included within the [id number]. 2. Unchanged degenerative changes when compared to prior cervical spine CT performed November 19, 2017. Signed by: Dr. Jen Clement M.D. on 11/25/2017 9:31 AM
[2017-11-25] MEDS ORDERED: METHYLPREDNISOLONE SOD SUCC 40 MG/ML VIAL IV ONE ×2 (10:15→14:00)
[2017-11-25] MEDS ORDERED: IPRATROPIUM BROMIDE 0.02% 2.5 ML NEB NEB ONE (10:15)
[2017-11-25] MEDS ORDERED: LEVALBUTEROL HCL SOLN NEBU 1.25 MG/3 ML NEB INH ONE (10:15)
[2017-11-25 10:42] LABS: EOSINOPHILS % (MANUAL) 5 % (0-7); LYMPHOCYTES % (MANUAL) 24 % (19-48); MONOCYTES % (MANUAL) 6 % (3.4-9.0); NEUTROPHILS % (MANUAL) 65 % (40-74); PLATELET ESTIMATE ADEQUATE; PLATELET MORPHOLOGY COMMENT NORMAL; RBC MORPHOLOGY COMMENT NORMAL
[2017-11-25 10:46] VITALS: BP 136/63
[2017-11-25] MEDS: IPRATROPIUM BROMIDE 0.02% 2.5 ML NEB NEB SCH (13:00)
[2017-11-25] MEDS: LEVALBUTEROL HCL SOLN NEBU 1.25 MG/3 ML NEB INH SCH (13:00)
[2017-11-25 13:25] VITALS: BP 136/63
[2017-11-25] MEDS ORDERED: AMLODIPINE BESYLATE 10 MG TAB PO ONE (13:30)
--- NOTE | 2017-11-25 13:55 | Consultation ---
DATE OF CONSULTATION: November 25, 2017 CARDIOLOGY CONSULTATION CHIEF COMPLAINT: The patient is a 71-year-old with chest pain. HISTORY OF PRESENT ILLNESS: The patient is a 71-year-old who described to have chest pain, which started this morning. The patient is having difficulty expressing exactly what the chest pain felt like. She has had similar chest pain multiple times in the past. The patient admits to no shortness of breath, no abdominal pain, no fevers, no nausea, and no vomiting. PAST MEDICAL HISTORY: Significant for; 1. Some baseline dementia. 2. Hypertension. 3. Diabetes. SOCIAL HISTORY: The patient never smoked. The patient does not drink. FAMILY HISTORY: There is no known family history of coronary artery disease. PHYSICAL EXAMINATION GENERAL: The patient is an elderly female, in no obvious distress. VITAL SIGNS: Temperature of 98.8, blood pressure 140/80, and pulse of 76. HEENT: The patient had an abrasion on the bridge of her nose and some ecchymosis below her left eye. NECK: Supple. No jugular venous distension. No carotid bruits. CHEST: Clear to auscultation and percussion. CARDIAC: Demonstrated normal S1 and S2 with no murmurs, rubs, or gallops. ABDOMEN: Demonstrated good bowel sounds. No tenderness. No masses. EXTREMITIES: There is no clubbing, no cyanosis, and no edema. NEUROLOGICAL: The patient was arousable, was moving her extremities. EKG: Demonstrated normal sinus rhythm with some nonspecific ST and T-wave changes. IMPRESSION: The patient is a 71-year-old with atypical chest pain. RECOMMENDATIONS 1. The patient will need to be monitored on telemetry. 2. Cardiac enzymes have been ordered. 3. An echocardiogram with Doppler has been ordered. 4. A Lexiscan nuclear stress test has been ordered for tomorrow to exclude ischemia. Job#: [id number] VIKTOR cc:Inocente Swan MD
[2017-11-25] MEDS: GUAIFENESIN 600MG/DEXTROMETHORPHAN 30MG TABSR PO SCH ×2 (14:01→18:10)
[2017-11-25] MEDS: SERTRALINE HCL 50 MG TAB PO SCH (14:01)
--- NOTE | 2017-11-25 15:37 | History and Physical ---
PRIMARY CARE PROVIDER: Dr. Vinicio Veras. CHIEF COMPLAINT: Chest pain and shortness of breath. HISTORY OF PRESENT ILLNESS: Ms. Montes is a 71-year-old lady with COPD who presents with chest pain that she has been having intermittently for the last several days. She has been to the ER twice in the last week, once after a fall. She was seen at [place], received stitches over the bridge of her nose, and has bilateral periorbital ecchymosis. She was also seen a couple of days ago in the ER here for chest pain, had a troponin of 0.49 at that time, was discharged home, and returns now with again complaints of chest pain and shortness of breath. REVIEW OF SYSTEMS: She denies fever, chills, or weight loss. She denies sinus congestion or sore throat. She has chest pain as noted. No palpitations. No diaphoresis. She has some shortness of breath. She denies wheezing or productive cough. She denies abdominal pain, nausea, vomiting, or melena. She denies dysuria or flank pain. She denies rash or pruritus. She denies joint pain or swelling. She denies headache, vertigo, or loss of consciousness. She denies depression, agitation, or homicidal or suicidal ideation. She does have issues with anxiety. PAST MEDICAL HISTORY: Significant for longstanding hypertension, type 2 diabetes, and COPD. She also has mild dementia with anxiety and agitation. MEDICATIONS: Her regular medications include; 1. Amiodarone 200 mg daily. 2. Klonopin 1 mg twice daily. 3. Magnesium oxide 400 mg twice daily. 4. Metformin 500 mg twice daily. 5. Zoloft 75 mg daily. 6. Aspirin 81 mg daily. 7. Norvasc 5 mg daily. 8. Tapering prednisone for COPD. 9. Pravastatin 40 mg at bedtime. 10. She uses ANORO inhaler daily. ALLERGIES: She has no known drug allergies. FAMILY HISTORY: Significant for hypertension and diabetes. SOCIAL HISTORY: The patient is . Bahamian is her primary language. She lives at home with her daughter. She requires a lot of assistance with daily living activities and supervision. She does not smoke, drink, or use illegal drugs. PHYSICAL EXAM PSYCHIATRIC: She is awake and alert. She is oriented to herself. She seems a little confused at times. She is in no acute distress. VITAL SIGNS: Blood pressure 136/63, pulse 61 and regular, respiratory rate 20, O2 sat 100% on 2 liter nasal cannula, and temperature 97.6. HEENT: Her head shows evidence of her fall. She has bilateral periorbital ecchymosis and she has stitches across the bridge of her nose. Her oropharynx is clear. NECK: Supple with no mass or thyromegaly. LYMPHATIC SYSTEM: She has no palpable cervical, axillary, or inguinal adenopathy. CARDIOVASCULAR: Her heart has a regular rate and rhythm without murmur or extra heart sounds. She has no carotid bruits. She has no peripheral edema. She has weak dorsal pedal pulses. RESPIRATORY: Lungs reveal generally diminished breath sounds. Otherwise, clear with no wheezing. GASTROINTESTINAL: Abdomen is soft without organomegaly, masses, or tenderness. She has normal bowel sounds present. CUTANEOUS: Her skin is warm and dry to touch with no rash or skin breakdown. MUSCULOSKELETAL: Her joints are in normal alignment without erythema or swelling. She has no calf tenderness. NEUROLOGIC: Nonfocal with intact cranial nerves and no motor or sensory deficits. She does appear to have some mild dementia. DIAGNOSTIC AND LABORATORY STUDIES: Chest x-ray shows no acute disease. CT scan shows no acute disease and shows chronic degenerative changes. CT scan of the brain shows no acute infarcts, but it does show chronic ischemic changes, both lacunar infarcts as well as microvascular changes. Her UA is clear. Her EKG shows normal sinus rhythm with nonspecific ST-T wave changes, and her echocardiogram shows concentric left ventricular hypertrophy and an ejection fraction of 65 to 70%. Her TSH is 3.043. Her BNP is 535.4 and troponin is 0.515. Magnesium 1.2. Calcium 9.0. Her chemistry shows normal electrolytes. CO2 is 39. Creatinine 0.54 and BUN 15 for a normal GFR and glucose is 125. Transaminases, bilirubin, and alk phos are normal. CBC shows a white count of 5.8 with a normal differential, hemoglobin 8.7, hematocrit 30.9 with microcytic indices indicating a microcytic anemia, and platelet count 388,000. Coags are normal. IMPRESSION AND PLAN 1. Non-ST elevation myocardial infarction: Patient has been given aspirin. He is on subcutaneous Lovenox weight-based and started on metoprolol, increased the dose Norvasc, and cardiology is being consulted. 2. Acute diastolic congestive heart failure: Her chest x-ray is clear. BNP is elevated. We will monitor for now. Again, cardiology is being consulted. 3. Microcytic anemia: We will check fecal occult blood test and iron and vitamin levels as well as retic count for anemia workup. 4. Chronic obstructive pulmonary disease: We will get routine nebulizers and IV Zithromax. 5. Hypertension: We will continue Norvasc and add metoprolol as noted above. We will increase Norvasc dose for better blood pressure control. 6. Type 2 diabetes: The patient will continue her metformin as well as sliding scale insulin. 7. For prophylaxis, the patient is on subcutaneous Lovenox for deep venous thrombosis prophylaxis and Protonix for gastrointestinal prophylaxis. Job#: [id number] VIKTOR
[2017-11-25 16:28] VITALS: BP 141/78
[2017-11-25 17:16] LABS: CREATINE KINASE MB 2.8 ng/mL (0-5.0)
[2017-11-25 20:00] VITALS: BP 159/72
[2017-11-25] MEDS: PRAVASTATIN 20 MG TAB PO SCH (21:28)
[2017-11-25 23:30] VITALS: BP 98/52
[2017-11-26 00:20] VITALS: BP 98/52
[2017-11-26] MEDS: LORAZEPAM INJ 2 MG/ML VIAL IV PRN (02:27)
[2017-11-26 05:10] VITALS: BP 112/58
[2017-11-26] MEDS: GUAIFENESIN 600MG/DEXTROMETHORPHAN 30MG TABSR PO SCH ×4 (05:28→16:16)
[2017-11-26] MEDS: LEVALBUTEROL HCL SOLN NEBU 1.25 MG/3 ML NEB INH SCH ×3 (07:00→19:28)
[2017-11-26 07:08] LABS: HEMATOCRIT 30.1 % (34.2-44.1); HEMOGLOBIN 8.6 g/dL (12.0-16.0); LYMPHOCYTES # (AUTO) 0.7 (1.0-3.2); LYMPHOCYTES % 15.4 % (18.0-39.1); MEAN CORPUSCULAR HEMOGLOBIN 24.6 pg (28-32); MEAN CORPUSCULAR HGB CONC 28.6 g/dL (31-35); MONOCYTES # (AUTO) 0.3 (0.2-0.8); NEUTROPHILS # (AUTO) 3.7 (2.1-6.9); NEUTROPHILS % 77.4 % (38.7-80.0); PLATELET COUNT 449 x10e3/uL (140-360); RED CELL DISTRIBUTION WIDTH 14.9 % (11.7-14.4)
[2017-11-26] MEDS: METOPROLOL TARTRATE 25 MG TAB PO SCH ×2 (07:30→21:10)
[2017-11-26] MEDS: INSULIN REGULAR, HUMAN 100 UNIT/1 ML 3ML VIAL SQ SCH ×4 (07:30→21:10)
[2017-11-26 07:32] LABS: % IRON SATURATION 10 % (15-50); IRON 31 ug/dL (50-170); TOTAL IRON BINDING CAPACITY 298 ug/dL (261-478); TRANSFERRIN 213 mg/dL (180-382)
[2017-11-26 07:37] LABS: ALANINE AMINOTRANSFERASE 6 IU/L (0-55); ALBUMIN 2.7 g/dL (3.5-5.0); ALBUMIN/GLOBULIN RATIO 0.9 (0.8-2.0); ALKALINE PHOSPHATASE 49 IU/L (40-150); ANION GAP 10.7 mmol/L (8-16); BLOOD UREA NITROGEN 24 mg/dL (7-26); BUN/CREATININE RATIO 40 (6-25); CALCIUM 8.5 mg/dL (8.4-10.2); CARBON DIOXIDE 37 mmol/L (22-29); CHLORIDE 98 mmol/L (98-107); EST GLOMERULAR FILTRATION RATE > 60 ML/MIN (60-); GLUCOSE 137 mg/dL (74-118); MAGNESIUM 1.6 MG/DL (1.3-2.1); PHOSPHORUS 2.1 MG/DL (2.3-4.7); POTASSIUM 4.7 mmol/L (3.5-5.1); SODIUM 141 mmol/L (136-145)
[2017-11-26 08:34] LABS: ANISOCYTOSIS MODERATE; MICROCYTOSIS SLIGHT; PLATELET ESTIMATE SLIGHTLY INCREASED
[2017-11-26 08:35] LABS: HYPOCHROMASIA SLIGHT; PLATELET MORPHOLOGY COMMENT NORMAL; RBC MORPHOLOGY COMMENT NORMAL
[2017-11-26] MEDS: MULTIVITAMINS/MINERALS TAB PO SCH (09:00)
[2017-11-26 09:05] VITALS: BP 142/68
[2017-11-26] MEDS: PANTOPRAZOLE 40 MG 10ML VIAL IV SCH (09:05)
[2017-11-26] MEDS: MAGNESIUM OXIDE 400 MG TAB PO SCH ×2 (09:05→16:15)
[2017-11-26] MEDS: FERROUS SULFATE 325 MG TAB PO SCH ×2 (09:05→16:15)
[2017-11-26] MEDS: AMLODIPINE BESYLATE 10 MG TAB PO SCH (09:05)
[2017-11-26] MEDS: PREDNISONE 10 MG TAB PO SCH (09:05)
[2017-11-26] MEDS: ENOXAPARIN SOD INJ 40 MG/0.4 ML SYR SC SCH ×2 (09:05→21:30)
[2017-11-26] MEDS: AZITHROMYCIN 500MG/NS 250 ML 250 ML IV SCH (09:05)
[2017-11-26] MEDS: ASCORBIC ACID 500 MG TAB PO SCH ×3 (09:05→16:15)
[2017-11-26] MEDS: CLONAZEPAM 1 MG TAB PO SCH ×2 (09:05→16:15)
[2017-11-26] MEDS: AMIODARONE HCL 200 MG TAB PO SCH (09:05)
[2017-11-26] MEDS: ASPIRIN 81 MG ENTERIC COATED PO SCH (09:05)
[2017-11-26] MEDS: METFORMIN HCL 500 MG TAB PO SCH ×2 (09:05→16:15)
[2017-11-26] MEDS: SERTRALINE HCL 50 MG TAB PO SCH (09:05)
[2017-11-26 10:09] VITALS: BP 142/68
[2017-11-26] MEDS: IPRATROPIUM BROMIDE 0.02% 2.5 ML NEB NEB SCH ×2 (13:00→19:28)
[2017-11-26 16:31] VITALS: BP 125/60
--- NOTE | 2017-11-26 18:02 | Cardiology Report ---
DATE OF STUDY: November 25, 2017 LEXISCAN NUCLEAR STRESS TEST INDICATION: Chest pain. TECHNIQUE: The patient was given 11 millicuries of Myoview. Resting images were obtained in the horizontal, long axis, vertical long axis and short axis. Patient was then hooked up to the EKG machine and Lexiscan was infused over 15 seconds. During Lexiscan infusion, the patient had no chest pain and no EKG changes. One minute after completion of Lexiscan infusion, the patient was given 30 millicuries of Myoview. Stress images were obtained 30 minutes after Lexiscan infusion. Stress images were obtained in the horizontal, long axis, vertical long axis and short axis. RESULTS: 1. The resting EKG demonstrated normal sinus rhythm with some nonspecific ST and T wave changes. 2. There were no EKG changes and no symptoms during Lexiscan infusion. 3. There was normal perfusion to all segments of the myocardium on both stress and rest. 4. There was normal left ventricular size and function with an ejection fraction of 52%. CONCLUSION: The patient has normal left ventricular size and function with an ejection fraction of 52%. There is no evidence of myocardial ischemia. There is no reversible defect and no fixed defect. Job#: [id number] cc:ROSEMARY NEWELL MD
[2017-11-26 20:00] VITALS: BP 141/64
[2017-11-26] MEDS: PRAVASTATIN 20 MG TAB PO SCH ×2 (21:30→21:40)
[2017-11-27] VITALS (7 sets, daily range): BP systolic 115–141; BP diastolic 56–98
[2017-11-27] MEDS: GUAIFENESIN 600MG/DEXTROMETHORPHAN 30MG TABSR PO SCH ×4 (00:40→17:20)
[2017-11-27] MEDS: IPRATROPIUM BROMIDE 0.02% 2.5 ML NEB NEB SCH ×4 (01:10→19:45)
[2017-11-27] MEDS: LEVALBUTEROL HCL SOLN NEBU 1.25 MG/3 ML NEB INH SCH ×4 (01:10→19:45)
[2017-11-27] MEDS: METOPROLOL TARTRATE 25 MG TAB PO SCH ×2 (07:30→21:10)
[2017-11-27] MEDS: INSULIN REGULAR, HUMAN 100 UNIT/1 ML 3ML VIAL SQ SCH ×4 (07:30→21:10)
[2017-11-27] MEDS: CLONAZEPAM 1 MG TAB PO SCH ×2 (09:40→17:20)
[2017-11-27] MEDS: AMLODIPINE BESYLATE 10 MG TAB PO SCH (09:40)
[2017-11-27] MEDS: SERTRALINE HCL 50 MG TAB PO SCH (09:40)
[2017-11-27] MEDS: PREDNISONE 10 MG TAB PO SCH (09:40)
[2017-11-27] MEDS: MAGNESIUM OXIDE 400 MG TAB PO SCH ×2 (09:40→17:20)
[2017-11-27] MEDS: AZITHROMYCIN 500MG/NS 250 ML 250 ML IV SCH (09:40)
[2017-11-27] MEDS: MULTIVITAMINS/MINERALS TAB PO SCH (09:40)
[2017-11-27] MEDS: PANTOPRAZOLE 40 MG 10ML VIAL IV SCH (09:40)
[2017-11-27] MEDS: ENOXAPARIN SOD INJ 40 MG/0.4 ML SYR SC SCH ×2 (09:40→21:30)
[2017-11-27] MEDS: METFORMIN HCL 500 MG TAB PO SCH ×2 (09:40→17:20)
[2017-11-27] MEDS: FERROUS SULFATE 325 MG TAB PO SCH ×2 (09:40→17:00)
[2017-11-27] MEDS: ASPIRIN 81 MG ENTERIC COATED PO SCH (09:40)
[2017-11-27] MEDS: AMIODARONE HCL 200 MG TAB PO SCH (09:40)
[2017-11-27] MEDS: LORAZEPAM INJ 2 MG/ML VIAL IV PRN (14:00)
[2017-11-27] MEDS: ASCORBIC ACID 500 MG TAB PO SCH ×2 (14:12→17:20)
[2017-11-28] VITALS (8 sets, daily range): BP systolic 120–166; BP diastolic 56–73
[2017-11-28] MEDS: GUAIFENESIN 600MG/DEXTROMETHORPHAN 30MG TABSR PO SCH ×4 (00:45→17:00)
[2017-11-28] MEDS: IPRATROPIUM BROMIDE 0.02% 2.5 ML NEB NEB SCH ×4 (01:00→19:15)
[2017-11-28] MEDS: LEVALBUTEROL HCL SOLN NEBU 1.25 MG/3 ML NEB INH SCH ×4 (01:00→19:15)
[2017-11-28 06:57] LABS: BASOPHILS % 0.3 % (0.0-1.0); EOSINOPHILS # (AUTO) 0.2 (0.0-0.4); EOSINOPHILS % 2.7 % (0.0-6.0); HEMATOCRIT 27.9 % (34.2-44.1); HEMOGLOBIN 8.1 g/dL (12.0-16.0); LYMPHOCYTES # (AUTO) 1.7 (1.0-3.2); LYMPHOCYTES % 27.3 % (18.0-39.1); MEAN CORPUSCULAR HEMOGLOBIN 24.5 pg (28-32); MEAN CORPUSCULAR VOLUME 84.3 fL (81-99); MONOCYTES # (AUTO) 0.9 (0.2-0.8); MONOCYTES % 14.1 % (4.4-11.3); NEUTROPHILS # (AUTO) 3.5 (2.1-6.9); NEUTROPHILS % 55.4 % (38.7-80.0); PLATELET COUNT 431 x10e3/uL (140-360); RED BLOOD COUNT 3.31 x10e6/uL (3.6-5.1); RED CELL DISTRIBUTION WIDTH 14.9 % (11.7-14.4)
[2017-11-28 07:28] LABS: BLOOD UREA NITROGEN 16 mg/dL (7-26); BUN/CREATININE RATIO 30 (6-25); CALCIUM 8.3 mg/dL (8.4-10.2); CARBON DIOXIDE 38 mmol/L (22-29); CHLORIDE 97 mmol/L (98-107); CREATININE, SERUM 0.54 mg/dL (0.57-1.11); EST GLOMERULAR FILTRATION RATE > 60 ML/MIN (60-); GLUCOSE 92 mg/dL (74-118); MAGNESIUM 1.5 MG/DL (1.3-2.1); SODIUM 140 mmol/L (136-145)
[2017-11-28] MEDS: INSULIN REGULAR, HUMAN 100 UNIT/1 ML 3ML VIAL SQ SCH ×4 (07:30→21:00)
[2017-11-28] MEDS: PREDNISONE 10 MG TAB PO SCH (09:07)
[2017-11-28] MEDS: METOPROLOL TARTRATE 25 MG TAB PO SCH ×2 (09:07→21:50)
[2017-11-28] MEDS: FERROUS SULFATE 325 MG TAB PO SCH ×2 (09:07→17:00)
[2017-11-28] MEDS: ENOXAPARIN SOD INJ 40 MG/0.4 ML SYR SC SCH ×2 (09:07→21:50)
[2017-11-28] MEDS: MULTIVITAMINS/MINERALS TAB PO SCH (09:07)
[2017-11-28] MEDS: METFORMIN HCL 500 MG TAB PO SCH ×2 (09:07→17:00)
[2017-11-28] MEDS: CLONAZEPAM 1 MG TAB PO SCH ×2 (09:07→17:00)
[2017-11-28] MEDS: PANTOPRAZOLE 40 MG 10ML VIAL IV SCH (09:07)
[2017-11-28] MEDS: ASPIRIN 81 MG ENTERIC COATED PO SCH (09:07)
[2017-11-28] MEDS: AMIODARONE HCL 200 MG TAB PO SCH (09:07)
[2017-11-28] MEDS: SERTRALINE HCL 50 MG TAB PO SCH (09:07)
[2017-11-28] MEDS: AMLODIPINE BESYLATE 10 MG TAB PO SCH (09:07)
[2017-11-28] MEDS: MAGNESIUM OXIDE 400 MG TAB PO SCH ×2 (09:07→17:00)
[2017-11-28] MEDS: AZITHROMYCIN 500MG/NS 250 ML 250 ML IV SCH (09:07)
[2017-11-28] MEDS: LORAZEPAM INJ 2 MG/ML VIAL IV PRN (13:06)
[2017-11-28] MEDS: ASCORBIC ACID 500 MG TAB PO SCH ×2 (13:06→17:00)
[2017-11-28] MEDS ORDERED: MAGNESIUM SULFATE 2GM/50ML 50 ML IV ONE (21:30)
[2017-11-28] MEDS ORDERED: SODIUM CHLORIDE 0.9% 250ML 250 ML ONE (21:45)
[2017-11-28] MEDS: PRAVASTATIN 20 MG TAB PO SCH (21:50)
[2017-11-29 00:03] VITALS: BP 119/56
[2017-11-29 00:47] VITALS: BP 119/56
[2017-11-29] MEDS: IPRATROPIUM BROMIDE 0.02% 2.5 ML NEB NEB SCH ×2 (00:54→07:00)
[2017-11-29] MEDS: LEVALBUTEROL HCL SOLN NEBU 1.25 MG/3 ML NEB INH SCH ×2 (00:54→07:00)
[2017-11-29] MEDS: GUAIFENESIN 600MG/DEXTROMETHORPHAN 30MG TABSR PO SCH ×3 (01:04→11:12)
[2017-11-29 04:12] VITALS: BP 113/54
[2017-11-29 06:38] LABS: BASOPHILS % 0.3 % (0.0-1.0); EOSINOPHILS # (AUTO) 0.3 (0.0-0.4); EOSINOPHILS % 4.5 % (0.0-6.0); HEMATOCRIT 29.3 % (34.2-44.1); HEMOGLOBIN 8.3 g/dL (12.0-16.0); LYMPHOCYTES # (AUTO) 2.1 (1.0-3.2); LYMPHOCYTES % 36.1 % (18.0-39.1); MEAN CORPUSCULAR HEMOGLOBIN 24.1 pg (28-32); MEAN CORPUSCULAR HGB CONC 28.3 g/dL (31-35); MEAN CORPUSCULAR VOLUME 84.9 fL (81-99); MONOCYTES # (AUTO) 0.7 (0.2-0.8); MONOCYTES % 12.2 % (4.4-11.3); NEUTROPHILS # (AUTO) 2.7 (2.1-6.9); NEUTROPHILS % 46.7 % (38.7-80.0); PLATELET COUNT 432 x10e3/uL (140-360); RED BLOOD COUNT 3.45 x10e6/uL (3.6-5.1); RED CELL DISTRIBUTION WIDTH 14.8 % (11.7-14.4)
[2017-11-29 06:59] LABS: ANION GAP 7.8 mmol/L (8-16); BLOOD UREA NITROGEN 14 mg/dL (7-26); BUN/CREATININE RATIO 26 (6-25); CALCIUM 8.4 mg/dL (8.4-10.2); CARBON DIOXIDE 39 mmol/L (22-29); CHLORIDE 97 mmol/L (98-107); CREATININE, SERUM 0.53 mg/dL (0.57-1.11); EST GLOMERULAR FILTRATION RATE > 60 ML/MIN (60-); GLUCOSE 90 mg/dL (74-118); MAGNESIUM 1.7 MG/DL (1.3-2.1); POTASSIUM 3.8 mmol/L (3.5-5.1); SODIUM 140 mmol/L (136-145)
[2017-11-29] MEDS: INSULIN REGULAR, HUMAN 100 UNIT/1 ML 3ML VIAL SQ SCH ×2 (07:30→11:30)
[2017-11-29] MEDS ORDERED: PANTOPRAZOLE SOD 40 MG TABEC PO SCH (07:30)
[2017-11-29 07:41] VITALS: BP 165/77
[2017-11-29 08:24] LABS: HYPOCHROMASIA SLIGHT; PLATELET ESTIMATE SLIGHTLY INCREASED; PLATELET MORPHOLOGY COMMENT NORMAL; RBC MORPHOLOGY COMMENT NORMAL
[2017-11-29 08:25] LABS: ANISOCYTOSIS SLIGHT
[2017-11-29] MEDS: SERTRALINE HCL 50 MG TAB PO SCH (08:43)
[2017-11-29] MEDS: MAGNESIUM OXIDE 400 MG TAB PO SCH (08:43)
[2017-11-29] MEDS: ASPIRIN 81 MG ENTERIC COATED PO SCH (08:43)
[2017-11-29] MEDS: CLONAZEPAM 1 MG TAB PO SCH (08:43)
[2017-11-29] MEDS: MULTIVITAMINS/MINERALS TAB PO SCH (08:43)
[2017-11-29] MEDS: AMLODIPINE BESYLATE 10 MG TAB PO SCH (08:43)
[2017-11-29] MEDS: ENOXAPARIN SOD INJ 40 MG/0.4 ML SYR SC SCH (08:43)
[2017-11-29] MEDS: FERROUS SULFATE 325 MG TAB PO SCH (08:43)
[2017-11-29] MEDS: AMIODARONE HCL 200 MG TAB PO SCH (08:43)
[2017-11-29] MEDS: METOPROLOL TARTRATE 25 MG TAB PO SCH (08:43)
[2017-11-29] MEDS: AZITHROMYCIN 500MG/NS 250 ML 250 ML IV SCH (08:43)
[2017-11-29] MEDS: PREDNISONE 10 MG TAB PO SCH (08:43)
[2017-11-29] MEDS: METFORMIN HCL 500 MG TAB PO SCH (08:43)
[2017-11-29] MEDS ORDERED: ASCORBIC ACID 500 MG TAB PO SCH (09:00)
[2017-11-29] MEDS: LORAZEPAM INJ 2 MG/ML VIAL IV PRN (11:12)
[2017-11-29 11:52] VITALS: BP 150/67
[2017-11-29] MEDS ORDERED: NORVASC10 MG PO (11:55)
[2017-11-29] MEDS ORDERED: HUMULIN R100 UNIT/2 SQ (11:55)
[2017-11-29] MEDS ORDERED: ASCORBIC ACID500 MG PO (11:55)
[2017-11-29] MEDS ORDERED: LOPRESSOR25 MG PO (11:55)
[2017-11-29] MEDS ORDERED: IPRATROPIU0.2 MG/1 M NEB (11:55)
[2017-11-29] MEDS ORDERED: Multivitamins/Minerals PO (11:55)
[2017-11-29] MEDS ORDERED: PRAVASTATIN SOD20 MG PO (11:55)
[2017-11-29] MEDS ORDERED: PROTONIX40 MG/ML PO (11:55)
[2017-11-29] MEDS ORDERED: FERROUS SULFAT325 MG PO (11:55)
[2017-11-29] MEDS ORDERED: XOPENEX1.25 MG/3 INH (11:55)
[2017-11-29] MEDS ORDERED: PREDNISONE10 MG PO (11:55)
--- NOTE | 2017-11-29 13:19 | Discharge Summary ---
PERTINENT HISTORY AND PHYSICAL FINDINGS: Ms. Montes is a 71-year-old lady with COPD, who presented to the emergency department with chest pain and shortness of breath that she has been having intermittently for the last several days. She had been to the ER twice in the past week, once after a fall. She was seen a [place], received stitches of the bridge of her nose and had bilateral periorbital ecchymoses. She was also seen a couple of days prior to admission here in the emergency room for chest pain, had a troponin of 0.49 at that time, was discharged home and subsequently returned again with complaints of chest pain and shortness of breath. Her PCP is Dr. Vinicio Veras. Her past medical history includes long-standing hypertension, type 2 diabetes mellitus, and COPD as well as mild dementia with anxiety and agitation. She has NO KNOWN DRUG ALLERGIES. ADMITTING DIAGNOSES: Included 1. [id number]-[id number] myocardial infarction. 2. Acute diastolic congestive heart failure. 3. Microcytic anemia. 4. Chronic obstructive pulmonary disease. 5. Hypertension. 6. Type 2 diabetes mellitus. DISCHARGE DIAGNOSES: Included 1. Omc-LL-fgdmglggh myocardial infarction. 2. Acute diastolic congestive heart failure. 3. Microcytic anemia. 4. Chronic obstructive pulmonary disease. 5. Hypertension. 6. Type 2 diabetes mellitus. Consult physicians include Dr. Baker with cardiology. Per Dr. Baker's note, the patient had atypical chest pain with a negative nuclear stress test, and cardiac labs were stable. Chest x-ray showed no acute disease. CT scan showed no acute disease and chronic degenerative changes. CT scan of the brain showed no acute infarcts, but it did show chronic ischemic changes, both lacunar infarcts as well as microvascular changes. UA was clear. EKG showed normal sinus rhythm with nonspecific ST wave changes, and her echocardiogram showed concentric left ventricular hypertrophy and an ejection fraction of 65% to 70%. B-type natriuretic peptide was 535.4, and troponin was 0.515. Magnesium 1.2, BUN 15 and creatinine 0.54 for a normal GFR. WBCs 5.8, hemoglobin 8.7, hematocrit 30.9, platelet count 388,000. All of these were on admission. CT of the neck had shown degenerative joint disease. No evidence of myocardial ischemia on the stress test. Patient's daughter gave telephone consent for [facility] transfer. Fingerstick blood glucose levels were stable. On November 28 the magnesium level was 1.5. This improved to 1.7 today. Patient had been given aspirin and was on subcutaneous Lovenox weight-based and started on metoprolol, and the Norvasc was increased. Anemia workup was done. Fecal occult blood test was positive. H\T\H did drop some, hemoglobin 8.1 and hematocrit 27.9 on November 28. However, this improved to 8.3 and 29.3, today seem stable. Patient received IV Zithromax and routine neb treatments for COPD. She was on metformin and sliding-scale insulin for the diabetes. Patient has been stable for transfer. She continues to have mild dementia and tends to get out of bed and pulls the invasive lines at times, is anxious, complains of dizziness and occasional chest pain. Today she said her pain was about 8 on a scale of 0 to 10. PHYSICAL EXAMINATION GENERAL: No acute distress, supine anxious. LUNGS: Clear, unlabored. Oxygen at 3 liters via nasal cannula. HEENT: A suture on the bridge of the nose. Hard of hearing. Bilateral periorbital ecchymoses. NECK: Supple. No lymphadenopathy, thyromegaly. CARDIOVASCULAR: Regular rate and rhythm without murmur. She has a left external jugular line. ABDOMEN: Bowel sounds positive. Soft, nontender. Bowel sounds x4 quadrants. EXTREMITIES: Without pitting edema. No clubbing, cyanosis or marked swelling. No signs or symptoms of DVT. NEUROLOGICAL: GCS of 14, eye 3, verbal 4, motor 6. Nonfocal. VITAL SIGNS: Temperature 96.4, heart rate 80, blood pressure 165/77, respirations 20, oxygen saturation 99%. The patient's discharge disposition will be [facility]. She is to continue on an ADA diet. Activity level as tolerated. Follow up with her PCP at [place] or accepting physician. Dictated by: Brent Hoyt NP ROSEMARY NEWELL MD Job#: [id number] EV
== END 2017-11-29 13:55 | DRG 280 ==
LOC: ER 07:01 → ERHOLD 08:02 → IMCU 08:04 → OBSVTOIN 12:20 → MED/SURG3 13:38
PROVIDERS: ADMIT Internal Medicine; ATTEND Internal Medicine
DX: I21.4 Non-ST elevation (NSTEMI) myocardial infarction (principal); I50.33 Acute on chronic diastolic (congestive) heart failure; E11.9 Type 2 diabetes mellitus without complications; F03.90 Unspecified dementia, unspecified severity, without behavioral disturbance, psychotic disturbance, mood disturbance, and anxiety; J44.1 Chronic obstructive pulmonary disease with (acute) exacerbation; E86.0 Dehydration; D50.9 Iron deficiency anemia, unspecified; Z91.81 History of falling; I11.0 Hypertensive heart disease with heart failure; Z79.4 Long term (current) use of insulin
CPT/HCPCS: 36415; 70450; 71045; 72125; 78452; 80048; 80053; 81001; 82270; 82550; 82553; 82607; 82746; 82948; 83540; 83690; 83735; 83880; 84100; 84443; 84466; 84484; 85025; 85610; 85730; 86850; 86900; 87086; 93005; 93017; 93306; 94640; 97139; 99285; A9502; J0456; J1650; J2060; J2270; J2405; J2920; J7030; J7050